=== PATIENT | male | born 1935 | race Caucasian/White ===

== ENCOUNTER → 2023-12-27 11:00 | Outpatient (REF) | payer MEDICARE, SELFPAY ==
[2023-12-27 12:05] LABS: % Eosinophils 6.1 % (0-6); % Immature Granulocytes 0.2 % (0-0.5); % Lymphocytes 28.3 % (20.5-51.1); % Neutrophils 56.4 % (42.2-75.2); Absolute Basophils 0.1 10^3/uL (0-0.2); Absolute Eosinophils 0.4 10^3/uL (0-0.7); Absolute Lymphocytes 1.8 10^3/uL (1.2-3.4); Absolute Monocytes 0.5 10^3/uL (0.1-0.6); Absolute Neutrophils 3.6 10^3/uL (1.4-6.5); Hematocrit 40.5 % (39.0-52.0); Hemoglobin 13.4 g/dL (13.0-18.0); Mean Corp Hgb Conc. 33.1 g/dL (33.0-37.0); Mean Corpuscular Hgb 29.1 pg (27.0-31.0); Mean Corpuscular Volume 87.9 fL (80.0-94.0); Mean Platelet Volume 11.3 fL (7.4-10.4); Nucleated Red Blood Cells % 0 % (-); Platelet Count 177 10^3/uL (130-400); Red Blood Cell Count 4.61 10^6/uL (4.70-6.10); Red Cell Dist. Width 13.7 % (11.5-14.5); White Blood Cell Count 6.3 10^3/uL (4.8-10.8)
[2023-12-27 12:17] LABS: Urine Albumin 1+ (Neg - Trace); Urine Bilirubin Negative (Negative); Urine Character Slightly Cloudy (Clear); Urine Color Brown; Urine Glucose Negative (Negative); Urine Ketone Trace (Negative); Urine Leukocyte Trace (Negative); Urine Nitrite Negative (Negative); Urine Occult Blood 4+ (Negative); Urine Specific Gravity 1.015 (<1.030); Urine Urobilinogen Negative (Neg - 1+)
[2023-12-27 12:25] LABS: Urine Amorphous Seen; Urine Bacteria Moderate (Negative); Urine Red Blood Cell >100 /HPF (0-2)
== END ==
LOC: OLABPATH 11:00
PROVIDERS: ATTENDING PHYSICIAN Internal Medicine
DX: R31.9 Hematuria, unspecified (principal)
CPT/HCPCS: 81003; 81015; 85025; 87077; 87086

== ENCOUNTER → 2024-01-16 12:00 | Outpatient (REF) | payer MEDICARE, SELFPAY ==
[2024-01-16 18:40] LABS: Urine Albumin Negative (Neg - Trace); Urine Bilirubin Negative (Negative); Urine Character Clear (Clear); Urine Color Yellow; Urine Glucose Negative (Negative); Urine Ketone Negative (Negative); Urine Leukocyte Negative (Negative); Urine Nitrite Negative (Negative); Urine Occult Blood Negative (Negative); Urine Specific Gravity 1.015 (<1.030); Urine Urobilinogen Negative (Neg - 1+)
== END ==
LOC: OLABPATH 12:00
PROVIDERS: ATTENDING PHYSICIAN Internal Medicine
DX: F03.90 Unspecified dementia, unspecified severity, without behavioral disturbance, psychotic disturbance, mood disturbance, and anxiety (principal); J93.9 Pneumothorax, unspecified
CPT/HCPCS: 81003; 87086

== ENCOUNTER → 2024-03-13 12:00 | Outpatient (REF) | payer MEDICARE, SELFPAY ==
[2024-03-16 17:58] LABS: Urine Albumin Trace (Neg - Trace); Urine Bilirubin Negative (Negative); Urine Character Very Cloudy (Clear); Urine Color Yellow; Urine Glucose Negative (Negative); Urine Ketone Negative (Negative); Urine Leukocyte Negative (Negative); Urine Nitrite Negative (Negative); Urine Occult Blood Trace (Negative); Urine Urobilinogen Negative (Neg - 1+)
[2024-03-16 18:13] LABS: Urine Bacteria Many (Negative); Urine White Cell 0-2 /HPF (0-5)
== END ==
LOC: CLAB 12:00
PROVIDERS: ATTENDING PHYSICIAN Internal Medicine
DX: F03.90 Unspecified dementia, unspecified severity, without behavioral disturbance, psychotic disturbance, mood disturbance, and anxiety (principal); Z87.81 Personal history of (healed) traumatic fracture; J93.9 Pneumothorax, unspecified
CPT/HCPCS: 36415; 81003; 81015; 87086

== ENCOUNTER → 2024-03-31 16:23 | Outpatient (REF) | payer MEDICARE, SELFPAY ==
[2024-03-31 17:00] LABS: Urine Albumin Negative (Neg - Trace); Urine Bilirubin Negative (Negative); Urine Character Clear (Clear); Urine Color Yellow; Urine Glucose Negative (Negative); Urine Ketone Negative (Negative); Urine Leukocyte Negative (Negative); Urine Nitrite Negative (Negative); Urine Occult Blood Negative (Negative); Urine Urobilinogen Negative (Neg - 1+)
== END ==
LOC: OLABPATH 16:23
PROVIDERS: ATTENDING PHYSICIAN Internal Medicine
DX: N39.0 Urinary tract infection, site not specified (principal)
CPT/HCPCS: 81003; 87086

== ENCOUNTER → 2024-05-05 11:25 | Outpatient (REF) | payer MEDICARE, SELFPAY ==
[2024-05-05 12:14] LABS: % Basophils 0.6 % (0-2); % Eosinophils 2.2 % (0-6); % Immature Granulocytes 1.1 % (0-0.5); % Monocytes 7.1 % (1.7-9.3); Absolute Basophils 0.1 10^3/uL (0-0.2); Absolute Eosinophils 0.2 10^3/uL (0-0.7); Absolute Immature Granulocytes 0.1 10^3/uL (0-0.05); Absolute Monocytes 0.7 10^3/uL (0.1-0.6); Absolute Neutrophils 7.9 10^3/uL (1.4-6.5); Hematocrit 43.1 % (39.0-52.0); Hemoglobin 13.7 g/dL (13.0-18.0); Mean Corp Hgb Conc. 31.8 g/dL (33.0-37.0); Mean Corpuscular Hgb 29.8 pg (27.0-31.0); Mean Corpuscular Volume 93.9 fL (80.0-94.0); Mean Platelet Volume 12.2 fL (7.4-10.4); Nucleated Red Blood Cells % 0 % (-); Platelet Count 214 10^3/uL (130-400); Red Blood Cell Count 4.59 10^6/uL (4.70-6.10); Red Cell Dist. Width 14.2 % (11.5-14.5)
[2024-05-05 12:35] LABS: ALT (SGPT) 29 U/L (0-50); AST (SGOT) 33 U/L (17-59); Albumin 3.2 g/dl (3.5-5.0); Alkaline Phosphatase 90 U/L (38-126); Blood Urea Nitrogen 38 mg/dl (9-20); Calcium 8.6 mg/dl (8.4-10.2); Carbon Dioxide 29 mmol/L (22-30); Chloride 117 mmol/L (98-107); Glucose 100 mg/dl (70-99); Potassium 3.9 mmol/L (3.5-5.1); Sodium 157 mmol/L (135-145); Total Bilirubin 1.4 mg/dl (0.2-1.3); Total Protein 6.2 g/dl (6.3-8.2); eGFR 58.89
== END ==
LOC: OLABPATH 11:25
PROVIDERS: ATTENDING PHYSICIAN Nurse Practitioner Family
DX: N40.0 Benign prostatic hyperplasia without lower urinary tract symptoms (principal); I48.20 Chronic atrial fibrillation, unspecified; J93.9 Pneumothorax, unspecified
CPT/HCPCS: 36415; 80053; 85025

== ENCOUNTER 2024-05-09 18:32 | Inpatient (IN) | payer MEDICARE, SELFPAY ==
[2024-05-09] VITALS (7 sets, daily range): BP systolic 112–149; BP diastolic 74–119; BMI 25.0; BMI 28.6
--- NOTE | 2024-05-09 15:51 | ED.GENMED ---
History of Present Illness
General
Chief Complaint: Urinary Symptoms
Source: patient and family (daughter)
Exam Limitations: dementia
Time Seen by Provider: 05/09/24 15:38
Nursing documentation reviewed up to this point in time: agreed with
History of Present Illness
History of Present Illness:
The patient is an 88-year-old man with a past medical history of dementia brought in by his daughter for hematuria. His daughter reports that he has had blood in his urine for about a week. Initially it seemed to become less abundant and darker,
however, daughter reports that today it appeared bright red and medina. Patient is on Xarelto for atrial fibrillation. Daughter reports that over a year ago, patient did have a Salas catheter and a traumatic injury due to pulling on the Salas
catheter. Since then, things have been stable. Daughter also reports that patient seems more sleepy than usual. Additionally, patient seems to be coughing and had a recent outpatient chest x-ray that the daughter was told appeared normal.
Patient does not provide a history. He does deny pain.
Past History
Past History
ED Past Medical History: CAD, COPD, HTN, Hypercholesterolemia, Other (Dementia, Parkinson's) and Other (Prostate hypertrophy)
ED Past Surgical History: Orthopedic (Bilateral knee replacements, right total hip, total L hip), Urological (Right nephrectomy) and Other (removal cystocele)
Social History
Tobacco: Former smoker
Alcohol: None
Drug: None
Personal:
Living: alone
Employment: Retired
Family History
Family History: Other
Review of Systems
Review of Systems
Allergies reviewed?: Yes
Unable to obtain full review of systems at this time due to: dementia
Other source history: family
All Other Systems: Not applicable
Constitutional: Reports fatigue
Respiratory: Reports cough
: Reports bleeding
Phy Exam
Physical Exam
Physical Exam:
Physical Exam
General: no apparent distress, sleepy but is arousable
Neck: supple.
Heart: s1/s2 regular rate and rhythm,
Lungs: Occasional wheeze, decreased breath sounds bilaterally
Abdomen: normal bowel sounds. not tender. no CVAT
Neuro: alert, nonfocal
Skin: no rash
Psychiatric: well kept. interactive and cooperative
Extremities: no edema.
Course
Orders/Labs/Results
Orders:
Orders
05/09/24 16:00
Urinalysis Reflex To Culture Urgent
Date Specimen was Collected: 05/09/24
Time Specimen was Collected: 15:57
Urine Microscopic Reflex Cult Urgent
Urine Culture Urgent
GENESIS Source: U
Specimen Description:
Date Specimen was Collected: 05/09/24
Time Specimen was Collected: 15:57
05/09/24 16:33
CT Abd/pel Without Iv Or Oral Urgent
Comment:
Reason For Exam: hematuria, UTI
05/09/24 17:18
Complete Blood Count/With Diff Urgent
Comprehensive Metabolic Panel Urgent
Abnormal Lab Results
05/09/24
16:00
Ur Occult Blood Reflex 4+ A
(Negative)
Leukocyte Esterase Rfl 2+ A
(Negative)
Urine RBC >100 A /HPF
(0-2)
Urine WBC (Reflex) >100 A /HPF
(0-5)
Urine Bacteria (Reflex) Moderate A
(Negative)
Urine Albumin (Reflex) 3+ A
(Neg - Trace)
Vital Signs
Initial and Last Documented VS:
Initial Vital Signs
Resp
28
05/09/24 15:38
Last Documented Vital Signs
Temp Pulse Resp BP Pulse Ox
98.6 F 94 18 133/99 96
05/09/24 15:53 05/09/24 15:53 05/09/24 15:53 05/09/24 15:53 05/09/24 15:53
MDM/Problems Addressed
Differential Diagnosis Includes:
Acute cystitis, pyelonephritis, kidney stones
MDM/Problems Addressed:
Patient here for acute hematuria
Chronic conditions affecting care:
Given patient has A-fib and is on Xarelto he is at increased risk of spontaneous bleeding
Acute Exacerbation and/or Progression of Chronic Illness: Arrhythmia
*Pulse Oximetry
Patient hypoxic: no
*EKG
Interpreted by ED Provider?: NA
*Drop Worker Interpretation
Rate: normal
Interpretation: normal
Rhythm: sinus
*Critical Care Note
Total Time (30-74mins, 75-104mins- exclusive of procedures): Not Applicable
Data Reviewed
Review of Other/Old Records Reveals: Discharge Summary (Discharge summary reviewed from 2021 when patient was admitted for orthostatic syncope and blood loss from traumatic Salas pull)
Source: patient and family
Patient Management
Discussion with other providers: Hospitalist
ED Attending Note
-
Portions of this chart may have been created with voice recognition software.� Occasional wrong word or��sound alike� substitutions may have occurred due to the inherent limitations of voice recognition software.
Discharge Plan
Departure
Prescriptions:
No Action
tamsulosin 0.4 MG capsule
0.4 mg PO DAILY
memantine 10 MG tablet
10 mg PO BID
donepezil 23 MG tablet
23 mg PO QPM
multivitamin with folic acid [Tab-A-Kyra] 1 TABLET tablet
1 tab PO DAILY
acetaminophen 325 MG tablet
650 mg PO Q6HPRN PRN (Reason: mild pain/ fever>100.5F) 0RF
magnesium hydroxide [Milk of Magnesia] 400 mg/5 mL Suspension
2,400 mg PO DAILYPRN PRN (Reason: constipation)
nystatin 100,000 unit/gram Powder
1 applic TOPICAL BID
loratadine 10 mg Tablet
10 mg PO DAILY
midodrine 5 MG tablet
10 mg PO TID@0800,1300,1800
Xarelto 20 MG tablet
20 mg PO QPM
Rx Instructions:
Resume on 12 AM
Referrals:
UNKNOWN - PT DOES,NOT KNOW [Family Provider] -
Interventions
Interventions:
*Risk Screen - Suicide Last Done: 05/09/24 17:15
*General Assessment Last Done: 05/09/24 17:15
*Neglect/Abuse Screening Last Done: 05/09/24 17:15
*ED COVID-19 Vaccine History Last Done: 05/09/24 17:15
Discharge Date and Time
Print Language: TELUGU
[2024-05-09 16:10] LABS: Urine Albumin 3+ (Neg - Trace); Urine Bilirubin Negative (Negative); Urine Character Bloody (Clear); Urine Color Brown; Urine Glucose Negative (Negative); Urine Ketone Negative (Negative); Urine Leukocyte 2+ (Negative); Urine Nitrite Negative (Negative); Urine Occult Blood 4+ (Negative); Urine Urobilinogen Negative (Neg - 1+); Urine pH 6.5 (5.0-9.0)
[2024-05-09 16:25] LABS: Urine Bacteria Moderate (Negative); Urine Red Blood Cell >100 /HPF (0-2); Urine White Cell >100 /HPF (0-5)
[2024-05-09 16:26] LABS: Urine Triple Phosphate Crystal Present
[2024-05-09 17:30] LABS: % Basophils 0.4 % (0-2); % Eosinophils 1.2 % (0-6); % Immature Granulocytes 0.7 % (0-0.5); % Lymphocytes 8.5 % (20.5-51.1); % Neutrophils 83.2 % (42.2-75.2); Absolute Basophils 0.1 10^3/uL (0-0.2); Absolute Eosinophils 0.2 10^3/uL (0-0.7); Absolute Immature Granulocytes 0.1 10^3/uL (0-0.05); Absolute Lymphocytes 1.1 10^3/uL (1.2-3.4); Absolute Monocytes 0.8 10^3/uL (0.1-0.6); Absolute Neutrophils 10.8 10^3/uL (1.4-6.5); Hematocrit 46.7 % (39.0-52.0); Hemoglobin 14.4 g/dL (13.0-18.0); Mean Corp Hgb Conc. 30.8 g/dL (33.0-37.0); Mean Corpuscular Hgb 28.8 pg (27.0-31.0); Mean Corpuscular Volume 93.4 fL (80.0-94.0); Mean Platelet Volume 11.3 fL (7.4-10.4); Nucleated Red Blood Cells % 0 % (-); Platelet Count 238 10^3/uL (130-400); Red Cell Dist. Width 14.3 % (11.5-14.5)
[2024-05-09 17:39] LABS: ALT (SGPT) 45 U/L (0-50); AST (SGOT) 42 U/L (17-59); Albumin 3.6 g/dl (3.5-5.0); Alkaline Phosphatase 105 U/L (38-126); Blood Urea Nitrogen 35 mg/dl (9-20); Carbon Dioxide 33 mmol/L (22-30); Chloride 114 mmol/L (98-107); Glucose 105 mg/dl (70-99); Potassium 4.3 mmol/L (3.5-5.1); Sodium 152 mmol/L (135-145); Total Bilirubin 0.9 mg/dl (0.2-1.3); Total Protein 6.7 g/dl (6.3-8.2); eGFR 48.95
--- NOTE | 2024-05-09 17:41 | HPS.HSE ---
Family Physician
-
Family Physician: NOT KNOW UNKNOWN - PT DOES
Chief Complaint
-
blood in the urine
History of Present Illness
88-year-old pleasantly confused male who is coming from longterm with confusion and hematuria. Patient is poor historian due to dementia and history was obtained with discussion from ER staff and patient daughter. Per patient daughter nursing
home noticed hematuria a few days ago and they inform patient daughter. Patient hematuria mildly improved. However patient redeveloped medina bright red blood in the urine. Daughter also noticed patient is more confused compared to his baseline.
Patient was more lethargic at the longterm. Daughter states patient does require assistance with feeding and was evaluated by speech therapy over the weekend who recommended nectar thick liquids. Per daughter patient has history of right
nephrectomy due to history of cancer. Had traumatic Simpson removal in the past. no recent hematuria was noticed. Patient is maintained on Xarelto for atrial fibrillation.'
ER Course- CT abd/pelvis pending. CXR pending.
Medical History
Past Medical History
Past Medical History: Reports Other
Additional Past Medical History:
CAD
COPD
Primary hypertension
Hyperlipidemia
Parkinson disease
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
Nonessential tremors
BPH
Gilbert disease
Past Surgical History: Reports Other
Additional Past Surgical History:
Bilateral knee replacement
Right nephrectomy
Right hip arthroplasty
Social History
Tobacco: Former Smoker
Living: Skilled Nursing
Family History
Family History: Not pertinent
Allergies / Home Medications
Allergies reflects when Allergies were last updated in [facility].
Home Medications with original date entered in [facility]
Allergy/Medication List:
Allergies
Allergy/AdvReac Type Severity Reaction Status Date / Time
NKA - No Known Allergies Allergy Unknown Unknown Uncoded 05/09/24 15:52
Home Medications
tamsulosin 0.4 mg capsule 0.4 mg PO DAILY Urinary issue 06/21/19
donepezil 23 mg tablet 23 mg PO QPM Neurological Condition 05/25/21
memantine 10 mg tablet 10 mg PO BID Neurological Condition 05/25/21
multivitamin with folic acid 400 mcg tablet (Tab-A-Kyra) 1 tab PO DAILY Supplement 05/25/21
loratadine 10 mg tablet 10 mg PO DAILY 11/20/22
midodrine 5 mg tablet 10 mg PO TID 11/20/22
rivaroxaban 20 mg tablet (Xarelto) 20 mg PO QPM Blood clot prevention/tx 11/20/22
acetaminophen 325 mg tablet (Tylenol) 650 mg PO Q4HPRN PRN MILD PAIN 05/09/24
amiodarone 200 mg tablet 200 mg PO BID 05/09/24
benzonatate 100 mg capsule 100 mg PO TIDPRN PRN COUGH 05/09/24
dextromethorphan-guaifenesin 30 mg-600 mg tablet extended [id number] hr (Mucinex DM) 1 tab PO [id number] PRN COUGH 05/09/24
guaifenesin 100 mg/5 mL oral liquid 200 mg PO Q6HPRN PRN COUGH 05/09/24
magnesium hydroxide 400 mg/5 mL oral suspension (Milk of Magnesia) 2,400 mg PO DAILYPRN PRN CONSTIPATION 05/09/24
nystatin 100,000 unit/gram topical powder (Nystop) 1 applic topical TIDPRN PRN SACRAL AREA 05/09/24
Review of Systems
-
Unable to obtain full review of systems at this time due to: Dementia
Physical Exam
Vital Signs
Vital Signs
Temp Pulse Resp BP Pulse Ox
98.6 F 94 18 133/99 96
05/09/24 15:53 05/09/24 15:53 05/09/24 15:53 05/09/24 15:53 05/09/24 15:53
Physical Exam
General: Well Developed, Well Nourished, No Apparent Distress and Appears Chronically Ill
HEENT: NormoCephalic, Moist mucous membranes, Atraumatic and Nose Appears Normal
Respiratory: Clear
Cardiac: S1/S2, Regular Rhythm and Murmur; No Rub
GI: Soft, Non Tender, Non Distended and Normal Bowel Sounds; No Organomegaly
Rectal: Deferred by Provider
Musculoskeletal: No Clubbing, No Cyanosis and No Edema
Skin: No Rash
Neuro: Awake and Nonfocal/grossly intact
Psych: Confused and Apparent Dementia
Laboratory Results
-
05/09/24 17:18
05/09/24 17:18
Laboratory Results
Total Bilirubin 0.9 mg/dl (0.2-1.3) 05/09/24 17:18
AST 42 U/L (17-59) 05/09/24 17:18
ALT 45 U/L (0-50) 05/09/24 17:18
Alkaline Phosphatase 105 U/L (38-126) 05/09/24 17:18
Impression/Plan
-
#Hematuria likely exacerbated with Xarelto
#Hx of Renal cell carcinoma status post nephrectomy
# History of hematuria 2021 status post cystoscopy with clot evacuation partial TURP by Dr. Parsons
CT abdomen pelvis is pending
Holding Xarelto
Start patient IV fluids
Follow-up in the urine culture
Start patient on IV antibiotic
Urology will determine three-way simpson versus need for CBI?
Unclear if with any retention.
May require mitts or restraints if it Simpson catheter to avoid tugging onto the Simpson.
Urology consultation
#Toxic metabolic encephalopathy likely secondary to hyponatremia secondary to dehydration and suspected urinary tract infection versus worsening of dementia
Started on D5W
Trend BMP
Started patient IV antibiotics
If lethargic then check CT head
#Alzheimer dementia
#Mild dysphagia
Continue to reorient patient as necessary
Avoid benzos
Continue with memantine and donepezil
Continue with nectar thick liquid consistency
Speech evaluation
#Paroxysmal atrial fibrillation
Chronic coagulopathy with Xarelto
Continue with amiodarone
Holding Xarelto
Nonessential tremors
Needs assistance with feeding
Chronic HFpEF
Moderate mitral regurgitation
DVT prophylaxis SCDs in the setting of hematuria
CODE STATUS DNR/DNI per [facility] and confirmed with patient daughter Johnna (EP SPONGE PACKER at [employer]) who is POA.
Discussed with patient daughter over the phone in details.
Discussed with ER physician
Discussed with neurologist
I spent a total of 78 minutes with the patient or on the floor. More than 50% of this time involved counseling and coordination of care.
[2024-05-09] MEDS: VALIUM INJECTION 2.5 MG IV (19:01)
--- NOTE | 2024-05-09 19:16 | CON.MD ---
Consultation - Medical
-
see dictated note
pt first to attention of cbi may 2021- hx of nx at [facility]- was in retention with simpson on xarelto- fell with traumatic simpson pull- developed clot retention eventually requiring cysto/fulguration with partiall tur by dr donnelly
seen once in office on f/u- was voiding with some incontinence
pt in memory care unit but has continued xarelto
started with hematuria last week- xarelto was held- restarted yesterday/today with return of hematuria/clots- brought to ER
stable but confused
3 way cath placed- no retention- bloody malodorous urine- irrigated without sig clot- cbi started
ct performed- no obvious gu abnl- final read pending
plan
spoke with daughter and med team
continue cbi
ucx
antibx
simpson and cbi
close observation
[2024-05-09] MEDS: NAMENDA 10 MG PO (22:48)
[2024-05-09] MEDS: ProAmatine PO (22:48)
[2024-05-09] MEDS: PACERONE 200 MG PO (22:48)
[2024-05-09] MEDS: ROCEPHIN 1000 MG IV (22:48)
[2024-05-09] MEDS: STERILE WATER FOR INJECTION 10 ML IV (22:49)
[2024-05-09] MEDS: D5/0.45%NACL 1000 IV (22:49)
[2024-05-10 03:30] VITALS: BP 133/93
[2024-05-10 06:00] VITALS: BMI 29.2
[2024-05-10 07:20] VITALS: BP 146/98
--- NOTE | 2024-05-10 07:27 | W.PN.URO.CBU ---
Today's Communication / Plan
-
continue cbi/antibx and hydration
Assessment / Plan
-
gross hematuria
? bph/UTI- tumor and stone less likely
in terms of bleeding- continue to hold xarelto and continue CBI- hopefully will clear with med management
stone debris is minimal and does not require intervention at this time- would continue aggresive hydration over the next 24-48hrs and this should pass/clear
will follow closely
Diagnosis
-
Date of Service: May 10, 2024
-
Patient Diagnosis:
gross hematuria
Subjective
-
pt remains confused
cbi running- slow rate- peach colored
cx's pending
ct reviewed- no gross mass- some nonobstructive stone debris in left ureter
Objective
-
Vital Signs
Temp Pulse Resp BP Pulse Ox
98.0 F 97 16 133/93 93
05/10/24 03:30 05/10/24 03:30 05/10/24 03:30 05/10/24 03:30 05/10/24 03:30
Intake and Output
05/09/24 05/10/24 05/11/24
06:59 06:59 06:59
Intake Total 500 / 500
Output Total 550 / 550
Balance -50 / -50
Intake:
IV fluids (Total) 500 / 500
Output:
True Urine Output from CBI 550 / 550
Review of Systems
-
Unable to obtain full review of systems at this time due to: Dementia
Physical Exam
-
General - no acute distress
Abdomen - soft, non-tender
Genitalia - simpson in place
[2024-05-10 07:51] LABS: INR 1.34; PT 16.9 Sec (11.4-14.6)
[2024-05-10 08:07] LABS: Blood Urea Nitrogen 28 mg/dl (9-20); Calcium 8.9 mg/dl (8.4-10.2); Carbon Dioxide 31 mmol/L (22-30); Chloride 114 mmol/L (98-107); Estimated Creatinine Clearance 39 ml/min; Glucose 103 mg/dl (70-99); Potassium 4.5 mmol/L (3.5-5.1); Sodium 152 mmol/L (135-145)
[2024-05-10 08:09] LABS: % Basophils 0.4 % (0-2); % Eosinophils 1.1 % (0-6); % Immature Granulocytes 0.7 % (0-0.5); % Monocytes 6.5 % (1.7-9.3); % Neutrophils 81.3 % (42.2-75.2); Absolute Basophils 0.1 10^3/uL (0-0.2); Absolute Eosinophils 0.1 10^3/uL (0-0.7); Absolute Immature Granulocytes 0.1 10^3/uL (0-0.05); Absolute Lymphocytes 1.3 10^3/uL (1.2-3.4); Absolute Monocytes 0.9 10^3/uL (0.1-0.6); Absolute Neutrophils 10.7 10^3/uL (1.4-6.5); Hematocrit 45.9 % (39.0-52.0); Hemoglobin 14.3 g/dL (13.0-18.0); Mean Corp Hgb Conc. 31.2 g/dL (33.0-37.0); Mean Corpuscular Volume 93.1 fL (80.0-94.0); Mean Platelet Volume 11.4 fL (7.4-10.4); Nucleated Red Blood Cells % 0 % (-); Platelet Count 202 10^3/uL (130-400); Red Blood Cell Count 4.93 10^6/uL (4.70-6.10); Red Cell Dist. Width 14.1 % (11.5-14.5); White Blood Cell Count 13.2 10^3/uL (4.8-10.8)
[2024-05-10 08:10] LABS: APTT 39.4 Sec (23.4-35.0)
[2024-05-10] MEDS: CLARITIN 10 MG PO (08:30)
[2024-05-10] MEDS: NAMENDA 10 MG PO ×2 (08:30→20:27)
[2024-05-10] MEDS: THERAGRAN 1 TABLET PO (08:30)
[2024-05-10] MEDS: FLOMAX 0.4 MG PO (08:31)
[2024-05-10] MEDS: PACERONE 200 MG PO ×2 (08:31→20:27)
[2024-05-10] MEDS: ProAmatine PO ×3 (08:31→16:58)
[2024-05-10] MEDS: D5W 1000 IV ×2 (08:55→20:27)
--- NOTE | 2024-05-10 11:19 | W.PN.HOSP.TC ---
Today's Communication/Plan
-
Cont CBI
D5W rate increased
IV abx
trend cbc
Assessment / Plan
Assessment / Plan
General: Well Developed, Well Nourished, No Apparent Distress and Appears Chronically Ill
HEENT: NormoCephalic, Moist mucous membranes, Atraumatic and Nose Appears Normal
Respiratory: Clear
Cardiac: S1/S2, Regular Rhythm and Murmur; No Rub
GI: Soft, Non Tender, Non Distended and Normal Bowel Sounds; No Organomegaly
Rectal: Deferred by Provider
Musculoskeletal: No Clubbing, No Cyanosis and No Edema
Skin: No Rash
:CBI with mild pinkish color urine
Neuro: Awake and Nonfocal/grossly intact
Psych: Confused and Apparent Dementia
#Hematuria likely exacerbated with Xarelto
#Hx of Renal cell carcinoma status post nephrectomy
# History of hematuria 2021 status post cystoscopy with clot evacuation partial TURP by Dr. Parsons
CT abdomen pelvis with renal stones. Non obstructive
Holding Xarelto
Start patient IV fluids
Follow-up in the urine culture
Start patient on IV antibiotic Rocephin
Cont with CBI
May require mitts or restraints if it Salas catheter to avoid tugging onto the Salas.
Urology consulted
#Toxic metabolic encephalopathy likely secondary to hyponatremia secondary to dehydration and suspected urinary tract infection versus worsening of dementia
Started on D5W
Trend BMP
Started patient IV antibiotics
If lethargic then check CT head
#Alzheimer dementia
#Mild dysphagia
Continue to reorient patient as necessary
Avoid benzos
Continue with memantine and donepezil
Continue with nectar thick liquid consistency
Speech evaluation
#Paroxysmal atrial fibrillation
Chronic coagulopathy with Xarelto
Continue with amiodarone
Holding Xarelto
Nonessential tremors
Needs assistance with feeding
Chronic HFpEF
Moderate mitral regurgitation
Gallstones
LFTs wnl. No RUQ pain. Tolerating diet.
DVT prophylaxis SCDs in the setting of hematuria
CODE STATUS DNR/DNI per [facility] and confirmed with patient daughter Johnna (EP MACHINIST HELPER at [employer]) who is POA.
Discussed with patient daughter over the phone in details on admisison and 05/10/24.
Discussed with urologist
Anticipated Discharge: > 48 hours
Subjective/Interval History
-
Date of Service: May 10, 2024
Remains on CBI
urine starting to clear up
Objective Data
-
Labs:
Laboratory Results
05/10/24
07:03
WBC 13.2 H
Hgb 14.3
Hct 45.9
Plt Count 202
PT 16.9 H
INR 1.34
APTT 39.4 H
Sodium 152 H
Potassium 4.5
Chloride 114 H
Carbon Dioxide 31 H
BUN 28 H
Creatinine 1.3
Glucose 103 H
Calcium 8.9
Vital Signs:
Vital Signs
Temp Pulse Resp BP Pulse Ox
96.9 F L 97 18 146/98 94
05/10/24 07:20 05/10/24 07:20 05/10/24 07:20 05/10/24 08:31 05/10/24 08:00
I&O
05/09/24 05/10/24 05/11/24
06:59 06:59 06:59
Intake Total 500 / 500
Output Total 550 / 550
Balance -50 / -50
Data Reviewed
-
Total Time Spent with Patient (in minutes): 55
[2024-05-10 12:12] LABS: ALT (SGPT) 38 U/L (0-50); AST (SGOT) 34 U/L (17-59); Albumin 3.4 g/dl (3.5-5.0); Alkaline Phosphatase 101 U/L (38-126); Direct Bilirubin 0.5 mg/dl (0.0-0.4); Total Bilirubin 1.4 mg/dl (0.2-1.3); Total Protein 6.5 g/dl (6.3-8.2)
[2024-05-10 13:00] VITALS: BP 127/84
--- NOTE | 2024-05-10 16:03 | CM ---
Initial assessment completed with pts daughter at bedside.
Pt lives with [facility].
Pt is w/c bound and receives total care. Per daughter, his alzheimers is progressing and is needing more aide with feeding and use of adaptive equipment.
PLAN; Return to [facility] when medically stable. Will need transport
[2024-05-10 16:05] VITALS: BP 147/88
[2024-05-10 19:58] VITALS: BP 123/79
[2024-05-10] MEDS: STERILE WATER FOR INJECTION 10 ML IV (21:47)
[2024-05-10] MEDS: ROCEPHIN 1000 MG IV (21:48)
[2024-05-10 23:08] VITALS: BP 102/61
[2024-05-11] VITALS (8 sets, daily range): BP systolic 100–140; BP diastolic 63–92; BMI 29.0
--- NOTE | 2024-05-11 06:23 | W.PN.URO.CBU ---
Today's Communication / Plan
-
wean cbi
still waiting on ucx
hold xarelto
Assessment / Plan
-
gross hematuria
? bph/UTI- tumor and stone less likely
in terms of bleeding- continue to hold xarelto and continue CBI- hopefully will clear with med management
stone debris is minimal and does not require intervention at this time- would continue aggresive hydration over the next 24-48hrs and this should pass/clear
plan to stop cbi at midnight tonight- if urine clear in am- would then d/c simpson for TOV
if bleeding persists- consider OR cysto/fulguration after discussion with daughter- will update today
Diagnosis
-
Date of Service: May 11, 2024
-
Patient Diagnosis:
gross hematuria
Subjective
-
pt asleep
urine light peach color on minimal cbi
ucx pending
Objective
-
Vital Signs
Temp Pulse Resp BP Pulse Ox
97.0 F 96 16 105/66 95
05/11/24 03:20 05/11/24 03:20 05/11/24 03:20 05/11/24 03:20 05/11/24 03:20
Intake and Output
05/09/24 05/10/24 05/11/24
06:59 06:59 06:59
Intake Total 500 / 500
Output Total 550 / 550 1800 / 1800
Balance -50 / -50 -1800 / -1800
Intake:
IV fluids (Total) 500 / 500
Output:
True Urine Output from CBI 550 / 550 1800 / 1800
Physical Exam
-
General - no acute distress
Abdomen - soft, non-tender
Genitalia - [address]
[2024-05-11 07:23] LABS: % Basophils 0.2 % (0-2); % Eosinophils 1.1 % (0-6); % Immature Granulocytes 0.6 % (0-0.5); % Lymphocytes 10.1 % (20.5-51.1); % Monocytes 7.2 % (1.7-9.3); % Neutrophils 80.8 % (42.2-75.2); Absolute Eosinophils 0.1 10^3/uL (0-0.7); Absolute Immature Granulocytes 0.1 10^3/uL (0-0.05); Absolute Lymphocytes 1.3 10^3/uL (1.2-3.4); Absolute Monocytes 0.9 10^3/uL (0.1-0.6); Absolute Neutrophils 10.3 10^3/uL (1.4-6.5); Hematocrit 40.8 % (39.0-52.0); Hemoglobin 12.8 g/dL (13.0-18.0); Mean Corp Hgb Conc. 31.4 g/dL (33.0-37.0); Mean Corpuscular Volume 92.3 fL (80.0-94.0); Mean Platelet Volume 11.5 fL (7.4-10.4); Nucleated Red Blood Cells % 0 % (-); Platelet Count 193 10^3/uL (130-400); Red Blood Cell Count 4.42 10^6/uL (4.70-6.10); Red Cell Dist. Width 13.8 % (11.5-14.5); White Blood Cell Count 12.8 10^3/uL (4.8-10.8)
[2024-05-11 07:49] LABS: Blood Urea Nitrogen 23 mg/dl (9-20); Calcium 8.1 mg/dl (8.4-10.2); Carbon Dioxide 28 mmol/L (22-30); Chloride 109 mmol/L (98-107); Estimated Creatinine Clearance 47 ml/min; Glucose 105 mg/dl (70-99); Potassium 3.9 mmol/L (3.5-5.1); Sodium 142 mmol/L (135-145); eGFR > 60.00
[2024-05-11] MEDS: NAMENDA 10 MG PO ×2 (10:34→20:43)
[2024-05-11] MEDS: PACERONE 200 MG PO ×2 (10:34→20:33)
[2024-05-11] MEDS: ProAmatine 10 MG PO ×3 (10:34→18:01)
[2024-05-11] MEDS: CLARITIN 10 MG PO (10:34)
[2024-05-11] MEDS: THERAGRAN 1 TABLET PO (10:34)
[2024-05-11] MEDS: FLOMAX 0.4 MG PO (10:34)
[2024-05-11] MEDS: D5W 1000 IV (11:34)
--- NOTE | 2024-05-11 13:41 | CM ---
manager training reviewed patient's chart and spoke with patient's daughter and spoke with [employer] supervisor at [facility] in [place] and plan is for patient to return to [facility] when stable. manager training will fax clinical.
Plan; Patient to return to [facility] in [place] when stable.
[phone]
--- NOTE | 2024-05-11 15:04 | W.PN.HOSP.TC ---
Today's Communication/Plan
-
Escalate antibiotics to IV Zosyn
RUQ ultrasound, consider HIDA and surgical consult
Monitor mental status clinically
CBI wean per urology
Hold Xarelto
Assessment / Plan
Assessment / Plan
#Gross hematuria
#Chronic anticoagulation
#H/O renal cell carcinoma s/p nephrectomy
-CT A/P showed 3 left-sided ureteral calculi with mild distention of mid to distal ureter
-UA here with 4+ blood, 2+ leukocyte esterase, >100 WBC, moderate bacteria; urine culture positive for Proteus, sensitivities pending
-Was started on ceftriaxone empirically for coverage of underlying UTI
-Will escalate to IV Zosyn for coverage of likely cholecystitis
-Currently on CBI wean per urology, Xarelto remains held
-Continue IV Zosyn, follow urine culture sensitivities
-Trend CBC and temperature curve
#Cholecystitis
-CT A/P from 05/09 mentions signs of cholecystitis
-Patient has had persistent leukocytosis on Abx, right sided abdomen pain
-Escalated IV antibiotics to Zosyn for better anaerobic and bowel coverage
-Order RUQ US to assess gallbladder, consider HIDA scan
-Continue IV Zosyn, trend CBC and temperature curve
#Toxic metabolic encephalopathy
-Likely secondary to above issues, suspect predominantly related to cholecystitis
-Has not clinically improved much, remains AAOx1, leukocytosis persistent on
-Transitioning to more broad-spectrum antibiotics as above
-Continue to monitor mental status clinically
#Alzheimer dementia
#Mild chronic dysphagia
-Avoid benzodiazepines, continue with memantine at donepezil
-Continue with nectar thick liquid consistency
#Paroxysmal AF
-Nonvalvular; home medications include amiodarone and Xarelto
-No known history of electrophysiologic interventions
-Holding Xarelto due to gross hematuria as above
#Chronic HFpEF
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
-Not currently on GDMT or standing diuretic therapy
-Is chronically on midodrine 10 mg 3 times daily
-Appears euvolemic
#Nonessential tremors
-Unclear etiology, likely associated with Parkinson's history
DVT prophylaxis: SCDs
Diet: Cholesterol-lowering, honey thick liquids
CODE STATUS: DNR
Anticipated Discharge: > 48 hours
Subjective/Interval History
-
Date of Service: May 11, 2024
Seen and examined at the bedside. No acute events reported overnight. AFVSS this morning.
Remains significantly altered, AAO x 1. Persistent leukocytosis on labs despite ceftriaxone
Unable to obtain further history or ROS due to his mental status
Objective Data
-
Labs:
Laboratory Results
05/11/24
06:52
WBC 12.8 H
Hgb 12.8 L
Hct 40.8
Plt Count 193
Sodium 142 D
Potassium 3.9
Chloride 109 H
Carbon Dioxide 28
BUN 23 H
Creatinine 1.1
Glucose 105 H
Calcium 8.1 L
Vital Signs:
Vital Signs
Temp Pulse Resp BP Pulse Ox
98.2 F 94 18 111/67 94
05/11/24 07:43 05/11/24 13:46 05/11/24 07:43 05/11/24 13:48 05/11/24 07:43
I&O
05/10/24 05/11/24 05/12/24
06:59 06:59 06:59
Intake Total 500 / 500 240 / 240
Output Total 550 / 550 1800 / 1800
Balance -50 / -50 -1560 / -1560
Review of Systems
-
Unable to obtain full review of systems at this time due to: Dementia and Acuity
Physical Exam
-
General: Well Developed, Well Nourished, No Apparent Distress and Comfortable
HEENT: Normocephalic, Atraumatic, Moist Mucous Membranes and Anicteric
Respiratory: Clear to Auscultation and Non Labored Respirations; Negative Accessory Resp Muscle Use
Cardiac: Regular Rhythm and S1/S2; Negative Murmur, Rub or Gallop
GI: Soft, Nondistended, Normal Bowel Sounds and Tender (Right-sided, no peritoneal signs)
Musculoskeletal: No Clubbing, No Cyanosis and No Edema
Skin: Warm and Dry; Negative Rash
Neuro: Tremors and Other (AAO x 1, nonfocal, cranial nerves grossly intact)
Psych: Calm
Data Reviewed
-
Labs: Labs Reviewed by me, Discussed with Nurse and Discussed with Family
[2024-05-11] MEDS: ZOSYN 50 IV ×2 (18:01→21:35)
[2024-05-12 03:19] VITALS: BP 118/82
[2024-05-12 03:58] VITALS: BMI 29.2
[2024-05-12] MEDS: ZOSYN 50 IV ×4 (04:25→21:00)
--- NOTE | 2024-05-12 07:21 | W.PN.URO.CBU ---
Today's Communication / Plan
-
simpson out for TOV
Assessment / Plan
-
gross hematuria
appears to be secondary to blood thinners and proteus UTI
urine clear off CBI- remove simpson for TOV
continue antibx
cr has been normal and no flank pain- so i believe stone debris likley cleared
if pt able to urinate- would discharge when medically stable with additional 7-10 days of antibx and hold of blood thinners during this period- after that- restart would be based on family's goals of care
he would then schedule outpt office visit to discuss cysto and f/u of stones
Diagnosis
-
Date of Service: May 12, 2024
-
Patient Diagnosis:
gross hematuria
proteus UTI
Subjective
-
pt stable
urine clear off cbi
ucx + for proteus
Objective
-
Vital Signs
Temp Pulse Resp BP Pulse Ox
97.0 F 107 18 118/82 97
05/12/24 03:19 05/12/24 03:19 05/12/24 03:19 05/12/24 03:19 05/12/24 03:19
Intake and Output
05/11/24 05/12/24 05/13/24
06:59 06:59 06:59
Intake Total 240 / 240 1310 / 1310
Output Total 1800 / 1800 800 / 800
Balance -1560 / -1560 510 / 510
Intake:
Oral fluids 240 / 240 960 / 960
IV fluids (Total) 300 / 300
IV piggybacks 50 / 50
Output:
Urine, Simpson 800 / 800
True Urine Output from CBI 1800 / 1800
Laboratory Results
05/11/24 06:52
05/11/24 06:52
Review of Systems
-
Unable to obtain full review of systems at this time due to: Dementia
Physical Exam
-
General -no acute distress
[2024-05-12 07:28] VITALS: BP 107/75
[2024-05-12 08:30] LABS: % Basophils 0.4 % (0-2); % Eosinophils 1.7 % (0-6); % Immature Granulocytes 0.8 % (0-0.5); % Lymphocytes 10.7 % (20.5-51.1); % Monocytes 7.4 % (1.7-9.3); Absolute Basophils 0.1 10^3/uL (0-0.2); Absolute Eosinophils 0.2 10^3/uL (0-0.7); Absolute Immature Granulocytes 0.1 10^3/uL (0-0.05); Absolute Lymphocytes 1.2 10^3/uL (1.2-3.4); Absolute Monocytes 0.8 10^3/uL (0.1-0.6); Absolute Neutrophils 8.8 10^3/uL (1.4-6.5); Hematocrit 42.6 % (39.0-52.0); Hemoglobin 13.5 g/dL (13.0-18.0); Mean Corp Hgb Conc. 31.7 g/dL (33.0-37.0); Mean Corpuscular Volume 91.4 fL (80.0-94.0); Mean Platelet Volume 11.2 fL (7.4-10.4); Nucleated Red Blood Cells % 0 % (-); Platelet Count 208 10^3/uL (130-400); Red Blood Cell Count 4.66 10^6/uL (4.70-6.10); Red Cell Dist. Width 13.9 % (11.5-14.5); White Blood Cell Count 11.2 10^3/uL (4.8-10.8)
[2024-05-12] MEDS: ProAmatine 10 MG PO ×3 (09:07→16:28)
[2024-05-12] MEDS: CLARITIN 10 MG PO (09:07)
[2024-05-12] MEDS: PACERONE 200 MG PO ×2 (09:07→20:42)
[2024-05-12] MEDS: THERAGRAN 1 TABLET PO (09:07)
[2024-05-12] MEDS: FLOMAX 0.4 MG PO (09:07)
[2024-05-12] MEDS: NAMENDA 10 MG PO ×2 (09:08→20:38)
[2024-05-12 09:30] LABS: Blood Urea Nitrogen 24 mg/dl (9-20); Calcium 8.2 mg/dl (8.4-10.2); Carbon Dioxide 28 mmol/L (22-30); Chloride 108 mmol/L (98-107); Estimated Creatinine Clearance 37 ml/min; Glucose 89 mg/dl (70-99); Sodium 144 mmol/L (135-145); eGFR 48.95
[2024-05-12 09:40] LABS: COVID-19 Antigen Negative (Negative)
--- NOTE | 2024-05-12 10:29 | CM ---
Patient to return to [facility] in [place] when stable.
[facility]
[phone]
[2024-05-12 11:15] VITALS: BP 110/70
--- NOTE | 2024-05-12 12:22 | W.PN.HOSP.TC ---
Today's Communication/Plan
-
Continue IV Zosyn and follow sensitivity for Proteus
IV fluids and encourage p.o. intake
Trial of void
Assessment / Plan
Assessment / Plan
#Gross hematuria
#Chronic anticoagulation
#H/O renal cell carcinoma s/p nephrectomy
-CT A/P showed 3 left-sided ureteral calculi with mild distention of mid to distal ureter
-UA here with 4+ blood, 2+ leukocyte esterase, >100 WBC, moderate bacteria; urine culture positive for Proteus, sensitivities pending
-Was started on ceftriaxone empirically for coverage of underlying UTI; UCx growing Proteus, sensitivities pending
-Escalated antibiotics to IV Zosyn due to persistent leukocytosis
-S/p CBI, Xarelto remains held for now
Plan
-Continue with IV Zosyn and follow urine culture sensitivities
-Continue to trend temperature curve and CBC
-Hold Xarelto
-Trial of void today
#Toxic metabolic encephalopathy
-Likely secondary to above issues, suspect predominantly related to cholecystitis
-Has not clinically improved much, remains AAOx1, leukocytosis persistent on
-Transitioning to more broad-spectrum antibiotics as above
-Continue to monitor mental status clinically
#Alzheimer dementia
#Mild chronic dysphagia
-Avoid benzodiazepines, continue with memantine at donepezil
-Continue with nectar thick liquid consistency
#Paroxysmal AF
-Nonvalvular; home medications include amiodarone and Xarelto
-No known history of electrophysiologic interventions
-Holding Xarelto due to gross hematuria as above
#Chronic HFpEF
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
-Not currently on GDMT or standing diuretic therapy
-Is chronically on midodrine 10 mg 3 times daily
-Appears euvolemic
#Nonessential tremors
-Unclear etiology, likely associated with Parkinson's history
#CT read of cholecystitis and patient without gallbladder
-CT A/P from 05/09 mentions signs of cholecystitis, however patient does not have gallbladder
-Canceled RUQ US as previous study showed no gallbladder
DVT prophylaxis: SCDs
Diet: Cholesterol-lowering, honey thick liquids
CODE STATUS: DNR
Anticipated Discharge: 24 - 48 hours
Subjective/Interval History
-
Date of Service: May 12, 2024
Seen and examined at the bedside. No acute events reported overnight. AFVSS this morning
AAO x 1, spoke with his daughters yesterday he states that this is his baseline. Did raise concerns about possible URI symptoms recently and requested viral testing
No acute complaints today, ROS limited by his dementia
Objective Data
-
Labs:
Laboratory Results
05/12/24
08:13
WBC 11.2 H
Hgb 13.5
Hct 42.6
Plt Count 208
Sodium 144
Potassium 4.0
Chloride 108 H
Carbon Dioxide 28
BUN 24 H
Creatinine 1.4 H
Glucose 89
Calcium 8.2 L
Vital Signs:
Vital Signs
Temp Pulse Resp BP Pulse Ox
98.4 F 85 18 110/70 96
05/12/24 11:15 05/12/24 11:15 05/12/24 11:15 05/12/24 11:15 05/12/24 11:15
I&O
05/11/24 05/12/24 05/13/24
06:59 06:59 06:59
Intake Total 240 / 240 1310 / 1310
Output Total 1800 / 1800 800 / 800
Balance -1560 / -1560 510 / 510
Review of Systems
-
Unable to obtain full review of systems at this time due to: Dementia
Physical Exam
-
General: Well Developed, Well Nourished, No Apparent Distress and Comfortable
HEENT: Normocephalic, Atraumatic, Moist Mucous Membranes and Anicteric
Respiratory: Clear to Auscultation and Non Labored Respirations
Cardiac: Regular Rhythm and S1/S2; Negative Murmur, Rub or Gallop
GI: Soft, Nondistended, Normal Bowel Sounds and Tender (Suprapubic to lower abdomen, no peritoneal signs)
Musculoskeletal: No Clubbing, No Cyanosis and No Edema
Skin: Warm, Dry and Normal Turgor; Negative Rash
Neuro: Other (AAO x 1, no FND, cranial nerves grossly intact)
Psych: Calm
Data Reviewed
-
Labs: Labs Reviewed by me
[2024-05-12] MEDS: LR 1000 IV (13:29)
[2024-05-12 15:12] VITALS: BP 110/80
[2024-05-12 19:00] VITALS: BP 91/62
[2024-05-12 23:03] VITALS: BP 88/61
[2024-05-13] MEDS: LR 1000 IV ×3 (01:57→22:33)
[2024-05-13 03:00] VITALS: BP 85/51
[2024-05-13] MEDS: ZOSYN 50 IV ×2 (03:36→09:37)
[2024-05-13 06:00] VITALS: BMI 29.0
--- NOTE | 2024-05-13 07:19 | W.PN.URO.CBU ---
Today's Communication / Plan
-
continue antibx
await ucx
check pvr's
Assessment / Plan
-
gross hematuria
appears to be secondary to blood thinners and proteus UTI
BOSE OUT- no further hematuria noted
continue antibx
cr has been normal and no flank pain- so i believe stone debris likley cleared
check pvr's today
if emptying and stable- eventual plan would be for dicharge with oral course of atnibx for an additional 7 days and outpt f/u to discuss need for cysto
Diagnosis
-
Date of Service: May 13, 2024
-
Patient Diagnosis:
gross hematuria
proteus UTI
Subjective
-
no fevers
wbc declining
ucx final pending
NOT WELL DOCUMENTED- AT SOME POINT BOSE WAS REMOVED YESTERDAY- PT IS INCONT- BY NURSING REPORT A PVR WAS DONE AND WAS 'OK'
Objective
-
Vital Signs
Temp Pulse Resp BP Pulse Ox
98.1 F 80 16 85/51 95
05/13/24 03:00 05/13/24 03:00 05/13/24 03:00 05/13/24 03:00 05/13/24 03:00
Intake and Output
05/12/24 05/13/24 05/14/24
06:59 06:59 06:59
Intake Total 1310 / 1310 450 / 450
Output Total 800 / 800
Balance 510 / 510 450 / 450
Intake:
Oral fluids 960 / 960 450 / 450
IV fluids (Total) 300 / 300
IV piggybacks 50 / 50
Output:
Urine, Bose 800 / 800
Other:
Number of approximated MODERATE 1
amounts of urine
Number of approximated LARGE 1
amounts of urine
How many times incontinent 1
SATURATED amount urine
Laboratory Results
05/12/24 08:13
05/12/24 08:13
Review of Systems
-
Unable to obtain full review of systems at this time due to: Dementia
Physical Exam
-
General - no acute distress
Abdomen - soft, non-tender,
Genitalia - normal
[2024-05-13] MEDS: THERAGRAN 1 TABLET PO (08:45)
[2024-05-13] MEDS: CLARITIN 10 MG PO (08:45)
[2024-05-13] MEDS: ProAmatine 10 MG PO ×3 (08:45→16:59)
[2024-05-13] MEDS: FLOMAX 0.4 MG PO (08:45)
[2024-05-13] MEDS: PACERONE 200 MG PO ×2 (08:45→20:16)
[2024-05-13] MEDS: NAMENDA 10 MG PO ×2 (08:46→20:17)
[2024-05-13 09:45] LABS: % Basophils 0.5 % (0-2); % Immature Granulocytes 0.8 % (0-0.5); % Lymphocytes 17.6 % (20.5-51.1); % Monocytes 7.1 % (1.7-9.3); Absolute Eosinophils 0.3 10^3/uL (0-0.7); Absolute Immature Granulocytes 0.1 10^3/uL (0-0.05); Absolute Lymphocytes 1.5 10^3/uL (1.2-3.4); Absolute Monocytes 0.6 10^3/uL (0.1-0.6); Hematocrit 40.6 % (39.0-52.0); Hemoglobin 12.7 g/dL (13.0-18.0); Mean Corp Hgb Conc. 31.3 g/dL (33.0-37.0); Mean Corpuscular Hgb 28.8 pg (27.0-31.0); Mean Corpuscular Volume 92.1 fL (80.0-94.0); Mean Platelet Volume 11.6 fL (7.4-10.4); Nucleated Red Blood Cells % 0 % (-); Platelet Count 216 10^3/uL (130-400); Red Blood Cell Count 4.41 10^6/uL (4.70-6.10); White Blood Cell Count 8.4 10^3/uL (4.8-10.8)
[2024-05-13 09:53] LABS: Blood Urea Nitrogen 28 mg/dl (9-20); Calcium 8.2 mg/dl (8.4-10.2); Carbon Dioxide 26 mmol/L (22-30); Chloride 110 mmol/L (98-107); Estimated Creatinine Clearance 30 ml/min; Glucose 83 mg/dl (70-99); Potassium 3.9 mmol/L (3.5-5.1); Sodium 145 mmol/L (135-145); eGFR 38.78
--- NOTE | 2024-05-13 10:53 | PTOTSP ---
Reviewed chart and s/w dependency case manager. Apparently pt is wheelchair-bound and dependent for ADL's at baseline and will return to [facility] facility when medically stable. No rehab goals as pt is at baseline. Will sign off.
[2024-05-13 11:00] VITALS: BP 92/61
--- NOTE | 2024-05-13 11:03 | W.PN.HOSP.TC ---
Today's Communication/Plan
-
Transition to oral antibiotics
Hold Xarelto while on antibiotics
Discharge planning
Assessment / Plan
Assessment / Plan
#Gross hematuria
#Chronic anticoagulation
#H/O renal cell carcinoma s/p nephrectomy
#Urinary tract infection with Proteus mirabilis
-CT A/P showed 3 left-sided ureteral calculi with mild distention of mid to distal ureter
-UA here with 4+ blood, 2+ leukocyte esterase, >100 WBC, moderate bacteria; urine culture positive for Proteus, sensitivities pending
-Was started on ceftriaxone empirically for coverage of underlying UTI; UCx growing Proteus sensitive to third-generation cephalosporin
-Escalated antibiotics to IV Zosyn due to persistent leukocytosis which is now resolved
-S/p CBI, Xarelto remains held for now
Plan
-Transition to p.o. cefdinir today, plan for 14 days in total
-Continue to trend temperature curve and CBC
-Hold Xarelto until antibiotic course complete per urologist
-Monitor for urinary retention, recurrence of bleeding
#Toxic metabolic encephalopathy
-Likely secondary to above issues
-Resolved, AAO x 1 at baseline
#Alzheimer dementia
#Mild chronic dysphagia
-Avoid benzodiazepines, continue with memantine at donepezil
-Continue with nectar thick liquid consistency
#Paroxysmal AF
-Nonvalvular; home medications include amiodarone and Xarelto
-No known history of electrophysiologic interventions
-Holding Xarelto due to gross hematuria as above
#Chronic HFpEF
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
-Not currently on GDMT or standing diuretic therapy
-Is chronically on midodrine 10 mg 3 times daily
-Appears euvolemic
#Nonessential tremors
-Unclear etiology, likely associated with Parkinson's history
#CT read of cholecystitis and patient without gallbladder
-CT A/P from 05/09 mentions signs of cholecystitis, however patient does not have gallbladder
-Canceled RUQ US as previous study showed no gallbladder
DVT prophylaxis: SCDs
Diet: Cholesterol-lowering, honey thick liquids
CODE STATUS: DNR
Anticipated Discharge: Within 24 hours
Subjective/Interval History
-
Date of Service: May 13, 2024
Seen and examined at the bedside. No acute vents reported overnight. AFVSS this morning
Urine culture returned positive for Proteus, sensitive to third-generation cephalosporins. Much less abdomen tenderness to palpation, barely any discomfort today
He denies any acute complaints and states he feels well. ROS/history limited from baseline dementia, AAO x 1
Objective Data
-
Labs:
Laboratory Results
05/13/24
08:43
WBC 8.4
Hgb 12.7 L
Hct 40.6
Plt Count 216
Sodium 145
Potassium 3.9
Chloride 110 H
Carbon Dioxide 26
BUN 28 H
Creatinine 1.7 H
Glucose 83
Calcium 8.2 L
Vital Signs:
Vital Signs
Temp Pulse Resp BP Pulse Ox
98.1 F 80 16 85/51 95
05/13/24 03:00 05/13/24 03:00 05/13/24 03:00 05/13/24 03:00 05/13/24 03:00
I&O
05/12/24 05/13/24 05/14/24
06:59 06:59 06:59
Intake Total 1310 / 1310 450 / 450
Output Total 800 / 800
Balance 510 / 510 450 / 450
Review of Systems
-
Unable to obtain full review of systems at this time due to: Dementia
Physical Exam
-
General: Well Developed, Well Nourished, No Apparent Distress and Comfortable
HEENT: Normocephalic, Atraumatic, Moist Mucous Membranes, Anicteric and PERRLA
Respiratory: Clear to Auscultation and Non Labored Respirations
Cardiac: Regular Rhythm and S1/S2; Negative Murmur, Rub or Gallop
GI: Soft, Nondistended, Normal Bowel Sounds and Tender (Mild, suprapubic, improving. No peritoneal sign)
Musculoskeletal: No Clubbing, No Cyanosis and No Edema
Skin: Warm, Dry and Normal Turgor; Negative Rash
Neuro: Nonfocal/Grossly Intact and Other (AAO x 1)
Psych: Calm
Data Reviewed
-
Labs: Labs Reviewed by me, Discussed with Physician (Urology) and Discussed with Family
[2024-05-13 15:30] VITALS: BP 126/80
[2024-05-13 19:00] VITALS: BP 134/92
[2024-05-13] MEDS: OMNICEF 300 MG PO (20:16)
[2024-05-13 23:03] VITALS: BP 121/82
[2024-05-14 03:40] VITALS: BP 113/73
[2024-05-14 06:00] VITALS: BMI 29.0
[2024-05-14] MEDS: LR 1000 IV (06:28)
[2024-05-14 07:00] VITALS: BP 141/84
--- NOTE | 2024-05-14 07:44 | W.PN.URO.CBU ---
Today's Communication / Plan
-
cleared urologically for discharge
Assessment / Plan
-
gross hematuria
appears to be secondary to blood thinners and proteus UTI
BOSE OUT- no further hematuria noted
continue antibx
cr has been normal and no flank pain- so i believe stone debris likley cleared
pvr's minimal
plan would be for discharge with oral course of antibx for an additional 7 days and outpt f/u to discuss need for cysto
discussed with med tram
call with any further questions
Diagnosis
-
Date of Service: May 14, 2024
-
Patient Diagnosis:
gross hematuria
proteus UTI
Subjective
-
pt more awake and alert today
no complaints
urine clear by report
pvr's minimal
Objective
-
Vital Signs
Temp Pulse Resp BP Pulse Ox
97.8 F 86 18 113/73 94
05/14/24 03:40 05/14/24 03:40 05/14/24 03:40 05/14/24 03:40 05/14/24 03:40
Intake and Output
05/13/24 05/14/24 05/15/24
06:59 06:59 06:59
Intake Total 450 / 450 1200 / 1200
Balance 450 / 450 1200 / 1200
Intake:
Oral fluids 450 / 450
IV fluids (Total) 1200 / 1200
Other:
Number of approximated MODERATE 1
amounts of urine
Number of approximated LARGE 1
amounts of urine
How many times incontinent 1 1
SATURATED amount urine
Physical Exam
-
General - no acute distress
[2024-05-14 08:12] LABS: % Basophils 0.5 % (0-2); % Eosinophils 3.4 % (0-6); % Immature Granulocytes 0.5 % (0-0.5); % Lymphocytes 20.4 % (20.5-51.1); % Monocytes 7.1 % (1.7-9.3); % Neutrophils 68.1 % (42.2-75.2); Absolute Eosinophils 0.3 10^3/uL (0-0.7); Absolute Lymphocytes 1.5 10^3/uL (1.2-3.4); Absolute Monocytes 0.5 10^3/uL (0.1-0.6); Absolute Neutrophils 5.1 10^3/uL (1.4-6.5); Hematocrit 43.2 % (39.0-52.0); Hemoglobin 13.6 g/dL (13.0-18.0); Mean Corp Hgb Conc. 31.5 g/dL (33.0-37.0); Mean Corpuscular Hgb 28.9 pg (27.0-31.0); Mean Corpuscular Volume 91.9 fL (80.0-94.0); Mean Platelet Volume 11.3 fL (7.4-10.4); Nucleated Red Blood Cells % 0 % (-); Platelet Count 212 10^3/uL (130-400); Red Cell Dist. Width 13.7 % (11.5-14.5); White Blood Cell Count 7.4 10^3/uL (4.8-10.8)
[2024-05-14] MEDS: CLARITIN 10 MG PO (08:16)
[2024-05-14] MEDS: THERAGRAN 1 TABLET PO (08:16)
[2024-05-14] MEDS: NAMENDA 10 MG PO (08:16)
[2024-05-14] MEDS: ProAmatine 10 MG PO (08:16)
[2024-05-14] MEDS: PACERONE 200 MG PO (08:16)
[2024-05-14] MEDS: FLOMAX 0.4 MG PO (08:16)
[2024-05-14] MEDS: OMNICEF 300 MG PO (08:16)
[2024-05-14 08:50] LABS: Blood Urea Nitrogen 28 mg/dl (9-20); Calcium 8.3 mg/dl (8.4-10.2); Carbon Dioxide 27 mmol/L (22-30); Chloride 111 mmol/L (98-107); Estimated Creatinine Clearance 34 ml/min; Glucose 82 mg/dl (70-99); Potassium 4.4 mmol/L (3.5-5.1); Sodium 145 mmol/L (135-145); eGFR 45.06
--- NOTE | 2024-05-14 10:31 | CM ---
Addendum entered by Deepika Ortiz 05/14/24 11:44:
Patient scheduled for 4:30 ambulance transport. Daughter Johnna updated with transport time. CM reviewed IMM with daughter, agreeable to discharge. Update to [facility] with time of transport.
Original Note:
CM reviewed chart, reviewed with Hospitalist, patient clear for discharge. CM placed call to [facility] at [place], spoke with Sharon, provided update that patient will return today. Sharon requested updated clinicals- faxed to [phone]. Patient
will require ambulance transport. Call to daughter/primary contact, Tamar, to provide update. Tamar reports her sister, Johnna, may have further questions, CM will call Johnna once transport time is received. CM will continue to follow for all
discharge planning needs.
Plan; return to [facility] [place], ambulance transport.
[facility] [phone]
--- NOTE | 2024-05-14 10:43 | W.PN.HOSP.TC ---
Today's Communication/Plan
-
Discharge to SNF
Continue cefdinir to complete 14 days
Hold Xarelto until after antibiotics
Assessment / Plan
Assessment / Plan
#Gross hematuria
#Chronic anticoagulation
#H/O renal cell carcinoma s/p nephrectomy
#Urinary tract infection with Proteus mirabilis
-CT A/P showed 3 left-sided ureteral calculi with mild distention of mid to distal ureter
-UA here with 4+ blood, 2+ leukocyte esterase, >100 WBC, moderate bacteria; urine culture positive for Proteus, sensitivities pending
-Was started on ceftriaxone empirically for coverage of underlying UTI; UCx growing Proteus sensitive to third-generation cephalosporin
-Escalated antibiotics to IV Zosyn due to persistent leukocytosis which is now resolved
-S/p CBI, Xarelto remains held for now, plan to resume when antibiotic course complete
-Continue cefdinir 300 mg every 12 hours to complete 14 days of antibiotic
#Toxic metabolic encephalopathy
-Likely secondary to above issues
-Resolved, AAO x 1 at baseline
#Alzheimer dementia
#Mild chronic dysphagia
-Avoid benzodiazepines, continue with memantine at donepezil
-Continue with nectar thick liquid consistency
#Paroxysmal AF
-Nonvalvular; home medications include amiodarone and Xarelto
-No known history of electrophysiologic interventions
-Holding Xarelto due to gross hematuria as above
-Should have risk/benefits discussion with PCP about long-term AC
#Chronic HFpEF
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
-Not currently on GDMT or standing diuretic therapy
-Is chronically on midodrine 10 mg 3 times daily
-Appears euvolemic
#Nonessential tremors
-Unclear etiology, likely associated with Parkinson's history
#CT read of cholecystitis and patient without gallbladder
-CT A/P from 05/09 mentions signs of cholecystitis, however patient does not have gallbladder
-Canceled RUQ US as previous study showed no gallbladder
DVT prophylaxis: SCDs
Diet: Cholesterol-lowering, honey thick liquids
CODE STATUS: DNR
Anticipated Discharge: Today
Subjective/Interval History
-
Date of Service: May 14, 2024
Seen and examined at the bedside. No acute events reported overnight. AFVSS this morning
Patient looks and states he feels well.
Denies any acute complaints. History limited by AO x 1 baseline
Objective Data
-
Labs:
Laboratory Results
05/14/24
07:53
WBC 7.4
Hgb 13.6
Hct 43.2
Plt Count 212
Sodium 145
Potassium 4.4
Chloride 111 H
Carbon Dioxide 27
BUN 28 H
Creatinine 1.5 H
Glucose 82
Calcium 8.3 L
Vital Signs:
Vital Signs
Temp Pulse Resp BP Pulse Ox
97.4 F 92 22 141/84 99
05/14/24 07:00 05/14/24 07:00 05/14/24 07:00 05/14/24 07:00 05/14/24 07:00
I&O
05/13/24 05/14/24 05/15/24
06:59 06:59 06:59
Intake Total 450 / 450 1200 / 1200 420 / 420
Balance 450 / 450 1200 / 1200 420 / 420
Review of Systems
-
Unable to obtain full review of systems at this time due to: Dementia
Physical Exam
-
General: Well Developed, Well Nourished, No Apparent Distress and Comfortable
HEENT: Normocephalic, Atraumatic, Moist Mucous Membranes and Anicteric
Respiratory: Clear to Auscultation and Non Labored Respirations
Cardiac: Regular Rhythm and S1/S2; Negative Murmur, Rub or Gallop
GI: Soft, Nontender, Nondistended and Normal Bowel Sounds
Musculoskeletal: No Clubbing, No Cyanosis and No Edema
Skin: Warm, Dry and Normal Turgor; Negative Rash
Neuro: Awake, Alert, Oriented, Nonfocal/Grossly Intact and Central Nerve's Intact
Psych: Calm
Data Reviewed
-
Labs: Labs Reviewed by me and Discussed with Patient
[2024-05-14 11:00] VITALS: BP 131/91
[2024-05-14] MEDS: ProAmatine PO ×2 (12:26→16:31)
[2024-05-14] MEDS: LR IV (13:53)
--- NOTE | 2024-05-14 14:24 | W.DCSUMMARY ---
Discharge Summary
Discharge Data
Date of Admission: 05/09/24
Date of Discharge: 05/14/24
-
Pending Results: No
Hospital Course
87-year-old male with advanced dementia, Parkinson's disease, paroxysmal AF on Xarelto, HFpEF, orthostasis that presented to the hospital with toxic metabolic encephalopathy in the context of urinary tract infection and gross hematuria. Initial CT
A/P showed left-sided ureteral calculi with mild ureteral distention.
Urology evaluated and started CBI, Xarelto was held. Was started on broad-spectrum antibiotics, urinalysis consistent with infection of urine. Culture returned positive for Proteus with sensitivity to third-generation cephalosporins. Ultimately
was transition to cefdinir with plan to complete 14-day course of antibiotics. Trial of void was successful in the hospital. Plan to hold Xarelto until course of antibiotics is complete (can resume Xarelto morning after 14th day of antibiotics).
Should have risk/benefits discussion with PCP on long-term benefits of anticoagulation with his present comorbidities
Discharge Plan
-
Patient Disposition: Long-Term/SNF
Discharge Diagnosis/Procedures: Gross hematuria
UTI with Proteus mirabilis
Condition: Fair
Diet: No restrictions and Low Sodium
Activity: As tolerated
Driving Restrictions: No driving
Bathing Restrictions: None
Other Services: PT and OT
Specialty Instructions: Weigh Daily- Call MD for wt gain/loss 3 lbs overnight/5 lbs in 1 week
Activity Restrictions/Additional Instructions:
After discharge should have follow-up with family doctor, should be seen in office within 1 to 2 weeks of discharge
Should have follow-up with urologist in office
Referrals:
Emery Arshad MD, Resident [Family Practice Resident Year2] - (PCP office if needed)
Osvaldo Bernstein Jr., MD [Active] - in two to three weeks
UNKNOWN - PT DOES,NOT KNOW [Family Provider] -
Additional Discharge Medication Instructions: Hold Xarelto until cefdinir course completed. Should have risk/benefit discussion with PCP about long-term anticoagulant
Continue cefdinir 300 mg every 12 hours for 9 more days after discharge
Prescriptions:
New
cefdinir 300 mg Capsule
300 mg PO Q12 9 Days Qty: 18 0RF
Continued
tamsulosin 0.4 MG capsule
0.4 mg PO DAILY
memantine 10 MG tablet
10 mg PO BID
donepezil 23 MG tablet
23 mg PO QPM
multivitamin with folic acid [Tab-A-Kyra] 1 TABLET tablet
1 tab PO DAILY
loratadine 10 mg Tablet
10 mg PO DAILY
midodrine 5 MG tablet
10 mg PO TID
acetaminophen [Tylenol] 325 mg Tablet
650 mg PO Q4HPRN PRN (Reason: MILD PAIN)
amiodarone 200 mg Tablet
200 mg PO BID
guaifenesin 100 mg/5 mL Liquid
200 mg PO Q6HPRN PRN (Reason: COUGH)
magnesium hydroxide [Milk of Magnesia] 400 mg/5 mL Suspension
2,400 mg PO DAILYPRN PRN (Reason: CONSTIPATION)
benzonatate 100 mg Capsule
100 mg PO TIDPRN PRN (Reason: COUGH)
nystatin [Nystop] 100,000 unit/gram Powder
1 applic TOPICAL TIDPRN PRN (Reason: SACRAL AREA)
Mucinex DM 30-600 mg Tablet Extended Release 12 Hr
1 tab PO [id number] PRN (Reason: COUGH)
Held
Xarelto 20 MG tablet
20 mg PO QPM
Hold Instructions: Resume on 05/24/24. Should have discussion with family doctor regarding risks/benefits of long-term anticoagulation
Rx Instructions:
Resume on 12/30 AM
Discharge Orders:
Discharge Patient (As Directed); Ordered 05/14/24
Ordered By: Pedro Daley
Discharge Date and Time
Print Language: CENTRAL AFRICAN
[2024-05-14 15:00] VITALS: BP 139/89
== END 2024-05-14 17:30 | DRG 689 ==
LOC: 4 WEST ACU 18:32
PROVIDERS: ADMITTING PHYSICIAN Hospitalist; ATTENDING PHYSICIAN Internal Medicine; CONSULT PHYSICIAN Specialist; EMERGENCY PHYSICIAN Emergency Medicine
DX: N39.0 Urinary tract infection, site not specified (principal); G92.8 Other toxic encephalopathy; E87.1 Hypo-osmolality and hyponatremia; I50.32 Chronic diastolic (congestive) heart failure; D68.32 Hemorrhagic disorder due to extrinsic circulating anticoagulants; I48.0 Paroxysmal atrial fibrillation; Z79.01 Long term (current) use of anticoagulants; Z87.891 Personal history of nicotine dependence; G30.9 Alzheimer's disease, unspecified; F02.80 Dementia in other diseases classified elsewhere, unspecified severity, without behavioral disturbance, psychotic disturbance, mood disturbance, and anxiety; I11.0 Hypertensive heart disease with heart failure; G20.A1 Parkinson's disease without dyskinesia, without mention of fluctuations; Z66 Do not resuscitate
CPT/HCPCS: 71046; 74176; 80048; 80053; 81003; 81015; 82248; 85025; 85610; 85730; 87070; 87077; 87086; 87186; 87324; 87449; 87502; 87807; 87811; 99285

== ENCOUNTER 2024-05-22 15:12 | Inpatient (IN) | payer MEDICARE, SELFPAY ==
[2024-05-22] VITALS (21 sets, daily range): BP systolic 100–143; BP diastolic 56–77; BMI 26.1
--- NOTE | 2024-05-22 11:34 | ED.GENMED ---
History of Present Illness
General
Chief Complaint: Breathing Problem
Time Seen by Provider: 05/22/24 11:25
History of Present Illness
History of Present Illness:
88-year-old male with history of dementia presents to the emergency department from a nursing facility for evaluation of hypoxia and fatigue. He is reportedly at his baseline mental status which is AO x 1. He can offer no history. On arrival was
noted to have room air saturations in the mid 80s, no prior supplemental oxygen need. Was discharged in this hospital just over 1 week ago for hematuria and is currently on cefdinir for 1 further day for UTI. He was previously anticoagulated on
Xarelto however this was held during recent hospital stay for hematuria and is set to resume tomorrow
Past History
Past History
ED Past Medical History: CAD, COPD, HTN, Hypercholesterolemia, Other (Dementia, Parkinson's) and Other (Prostate hypertrophy)
ED Past Surgical History: Orthopedic (Bilateral knee replacements, right total hip, total L hip), Urological (Right nephrectomy) and Other (removal cystocele)
Social History
Tobacco: Former smoker
Alcohol: None
Drug: None
Personal:
Living: alone
Employment: Retired
Family History
Family History: Other
Review of Systems
Review of Systems
Allergies reviewed?: Yes
All Other Systems: ROS reviewed and negative except as documented in HPI and ROS
Phy Exam
Physical Exam
Physical Exam:
GEN: Sleeping, arouses to voice, tachypneic
Eyes: PERRLA, EOMs intact, no scleral icterus
HENT: NCAT, oral mucosa moist, no JVD
Lungs: Tachypneic, no biostatistician muscle use, crackles at the bases
Cardiac: RRR, no M/R/G, no peripheral edema. Radial pulses 2+ bilat
Abdomen: S, NT, ND, NABS, no masses or hepatosplenomegaly
Neuro: AO x 3, no focal deficits to BUE/BLE, normal sensation throughout
MSK: No gross deformity or ecchymosis. +1 pitting edema to left lower extremity with mild circumferential erythema
Skin: No rashes, petechiae. Normal color, no pallor or jaundice.
Psych: Calm, cooperative, proper hygiene
Scores
Heart Failure Risk
Heart Failure Risk Score: Not Applicable
Course
Orders/Labs/Results
Orders:
Orders
05/22/24 11:25
CR Chest - 2 Views Urgent
Comment:
Reason For Exam: sob'
05/22/24 11:29
Complete Blood Count/With Diff Urgent
Comprehensive Metabolic Panel Urgent
NT-proBNP Urgent
Troponin I Urgent
Comment: ADD ON
05/22/24 11:35
Electrocardiogram (*1) Urgent
Reason for Study: Shortness of Breath
EKG- Treatment ONCE
05/22/24 11:36
Add On- LAB Urgent
Tests Added?: troponin
05/22/24 11:38
COVID-19 Antigen Urgent
Source: Nasal Swab
Influenza A+B Rapid Molecular Urgent
GENESIS Source: Nasal Swab
Specimen Description:
05/22/24 12:43
CT Chest Pe Study Urgent
Comment:
Reason For Exam: hypoxia
05/22/24 14:05
Heparin 7,400 units IV NOW STA
Nursing to Place Non Medication Order As Directed
Physician Order: PTT 6 hours after initial start of Heparin infusion
05/22/24 14:15
Heparin 08792 Units/250 ml 25,000 units in 250 ml IV PER PROTOCOL
Weight to be used for heparin protocol in kilograms (kg):: 92
Protocol:: DVT/PE
PTT Goal Range to be used:: PTT 73 to 111 seconds
Order type:: Initial
INITIAL Infusion Dose (UNITS/KG/hr) & then follow protocol:: 18 units/kg/hr
Infusion Dose in UNITS/hr & then follow protocol (UNITS/hr):: 1,700
INFUSION RATE in mL/hr & then follow protocol (mL/hr):: 17
For DVT/PE algorithm, re-bolus for low PTT?: Yes
PTT less than or equal to 64 seconds:: Re-bolus 80 units/kg (max 10,000units). Increase by 400 units/hr
(+ 4mL/hr)
PTT 64.1 to 72.9 seconds:: Re-bolus 40 units/kg (max 5,000 units). Increase by 200 units/hr
(+ 2mL/hr)
PTT 73 to 111 seconds:: Target Range. No change in rate.
PTT 111.1 to 130.9 seconds:: Decrease rate by 200 units/hr (- 2 mL/hr)
PTT 131 to 199.9 seconds:: HOLD for 1 hr. Then decrease by 300 units/hr (- 3mL/hr)
PTT greater than or equal to 200 seconds:: HOLD for 2 hrs & Notify Provider. Then decrease by 400 units/hr
(- 4mL/hr)
Lab follow-up:: Each change, PTT q6h until 2 consecutive are therapeutic. Then
PTT daily.
05/22/24 14:17
PTT Urgent
Comment: Obtain baseline before beginning heparin infusion if not already collected
05/22/24 14:25
Heparin 3,700 units IV PRN PRN
Heparin 7,400 units IV PRN PRN
05/22/24 15:02
Admit/Transfer Patient As Directed
Co-Sign Provider:
Level of Care: Inpatient admission
Assign to:: Telemetry
Physician / Group: [email or web address]
Diagnosis: acute PE, HX hematuria and UTI, Suspect NIMI ,CXKD3a
Reason for Telemetry: Arrhythmia
Date to Stop Telemetry: 05/25/24
Time to Stop Telemetry: 11:00
Reason for Hospitalization: acute PE, HX hematuria and UTI, Suspect NIMI ,CXKD3a
Expected length of stay greater than two midnights?: Yes
ELOS- Estimated Length of Stay in days: 3
I certify the patient meets the requirements for IP care: Yes
05/22/24 15:05
Code Status As Directed
Resuscitation Status: Do not resuscitate
Based on pt advanced directive or healthcare POA form: Yes
05/22/24 15:07
DNR Bracelet Application ONCE
05/22/24 20:50
Protime/PTT Routine
05/25/24 11:00
DC Protocol for Telemetry ONCE
Abnormal Lab Results
05/22/24 05/22/24
11:29 14:17
RBC 4.07 L 10^6/uL
(4.70-6.10)
Hgb 11.8 L g/dL
(13.0-18.0)
Hct 36.8 L %
(39.0-52.0)
MCHC 32.1 L g/dL
(33.0-37.0)
RDW 14.6 H %
(11.5-14.5)
MPV 11.3 H fL
(7.4-10.4)
Abs Immat Gran (auto) 0.1 H 10^3/uL
(0-0.05)
Absolute Neuts (auto) 8.8 H 10^3/uL
(1.4-6.5)
Absolute Lymphs (auto) 0.8 L 10^3/uL
(1.2-3.4)
Absolute Monos (auto) 0.8 H 10^3/uL
(0.1-0.6)
Neutrophils % 82.3 H %
(42.2-75.2)
Lymphocytes % 7.8 L %
(20.5-51.1)
APTT 38.4 H Sec
(23.4-35.0)
Chloride 111 H mmol/L
(98-107)
BUN 40 H mg/dl
(9-20)
Creatinine 1.5 H mg/dL
(0.7-1.3)
Glucose 109 H mg/dl
(70-99)
Troponin I 0.054 H* ng/ml
Total Protein 5.8 L g/dl
(6.3-8.2)
Albumin 2.9 L g/dl
(3.5-5.0)
05/22/24 11:29
05/22/24 11:29
Vital Signs
Initial and Last Documented VS:
Initial Vital Signs
Temp Pulse Resp BP Pulse Ox
97.5 F 58 18 111/58 92
05/22/24 11:17 05/22/24 11:17 05/22/24 11:17 05/22/24 11:17 05/22/24 11:17
Last Documented Vital Signs
Temp Pulse Resp BP Pulse Ox
97.5 F 55 20 122/68 98
05/22/24 11:17 05/22/24 15:30 05/22/24 15:30 05/22/24 15:30 05/22/24 15:30
MDM/Problems Addressed
MDM/Problems Addressed:
Bilateral pulmonary embolisms seen on CT with no evidence of right heart strain. He is hypoxic but otherwise hemodynamically stable. Initiated heparin in the emergency department will admit for further management
*Critical Care Note
Total Time (30-74mins, 75-104mins- exclusive of procedures): Not Applicable
ED Attending Note
-
Portions of this chart may have been created with voice recognition software.� Occasional wrong word or��sound alike� substitutions may have occurred due to the inherent limitations of voice recognition software.
Discharge Plan
Departure
Patient Disposition: Admit
Date of Disposition: 05/22/24
Time of Disposition: 14:07
Admit to: Med/Surg
Presentation/result/management discussed w/ accepting MD/DO: Hospitalist
Discharge Problem:
Bilateral pulmonary embolism
Interventions
Interventions:
*Risk Screen - Suicide Last Done: 05/22/24 11:17
*General Assessment Last Done: 05/22/24 11:17
*Neglect/Abuse Screening Last Done: 05/22/24 11:17
ED- Cardiac Assessment Last Done: 05/22/24 12:45
ED- Pulmonary Assessment Last Done: 05/22/24 12:45
[2024-05-22 11:52] LABS: % Basophils 0.3 % (0-2); % Eosinophils 1.8 % (0-6); % Immature Granulocytes 0.5 % (0-0.5); % Lymphocytes 7.8 % (20.5-51.1); % Monocytes 7.3 % (1.7-9.3); % Neutrophils 82.3 % (42.2-75.2); Absolute Eosinophils 0.2 10^3/uL (0-0.7); Absolute Immature Granulocytes 0.1 10^3/uL (0-0.05); Absolute Lymphocytes 0.8 10^3/uL (1.2-3.4); Absolute Monocytes 0.8 10^3/uL (0.1-0.6); Absolute Neutrophils 8.8 10^3/uL (1.4-6.5); Hematocrit 36.8 % (39.0-52.0); Hemoglobin 11.8 g/dL (13.0-18.0); Mean Corp Hgb Conc. 32.1 g/dL (33.0-37.0); Mean Corpuscular Volume 90.4 fL (80.0-94.0); Mean Platelet Volume 11.3 fL (7.4-10.4); Nucleated Red Blood Cells % 0 % (-); Platelet Count 185 10^3/uL (130-400); Red Blood Cell Count 4.07 10^6/uL (4.70-6.10); Red Cell Dist. Width 14.6 % (11.5-14.5); White Blood Cell Count 10.7 10^3/uL (4.8-10.8)
[2024-05-22 11:57] LABS: ALT (SGPT) 22 U/L (0-50); AST (SGOT) 25 U/L (17-59); Albumin 2.9 g/dl (3.5-5.0); Alkaline Phosphatase 76 U/L (38-126); Blood Urea Nitrogen 40 mg/dl (9-20); Calcium 8.4 mg/dl (8.4-10.2); Carbon Dioxide 28 mmol/L (22-30); Chloride 111 mmol/L (98-107); Glucose 109 mg/dl (70-99); Potassium 4.2 mmol/L (3.5-5.1); Sodium 145 mmol/L (135-145); Total Bilirubin 1.3 mg/dl (0.2-1.3); Total Protein 5.8 g/dl (6.3-8.2); eGFR 45.06
[2024-05-22 12:05] LABS: COVID-19 Antigen Negative (Negative)
[2024-05-22 12:06] LABS: NT-proBNP 1100 pg/ml
[2024-05-22 12:48] LABS: Troponin I 0.054 ng/ml
[2024-05-22 14:38] LABS: APTT 38.4 Sec (23.4-35.0)
[2024-05-22] MEDS: HEPARIN 25000 UNITS/250 ML IV (14:41)
[2024-05-22] MEDS: HEPARIN 7400 UNITS IV (14:44)
--- NOTE | 2024-05-22 14:57 | HPS.HSE ---
Family Physician
-
Family Physician: Kanu Yu
Chief Complaint
-
For evaluation of hypoxia and fatigue.
History of Present Illness
I could not get any information from the patient due to dementia
Information gathered by chart review and speaking with the ER staff.
HPI:
88M Res of local nursing facility HX dementia, recent admission for Hematuria due to UTI and Xarelto which was held since last admission seen at ER:
- for evaluation of hypoxia and fatigue.
- Reportedly at his baseline mental status which is AO x 1
- On arrival was noted to have room air saturations in the mid 80s, no prior supplemental oxygen need.
- He was discharged in this hospital just over 1 week ago for hematuria and is currently on cefdinir for 1 further day for UTI. - Held Xareltosince last admission due to above
Medical History
Past Medical History
Past Medical History: Reports Other
Additional Past Medical History:
CAD
COPD
Primary hypertension
Hyperlipidemia
Parkinson disease
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
Nonessential tremors
BPH
Gilbert disease
Past Surgical History: Reports Other
Additional Past Surgical History:
Bilateral knee replacement
Right nephrectomy
Right hip arthroplasty
Social History
Tobacco: Former Smoker
Living: [facility]
Family History
Family History: Not pertinent
Allergies / Home Medications
Allergies reflects when Allergies were last updated in [facility].
Home Medications with original date entered in [facility]
Allergy/Medication List:
Allergies
Allergy/AdvReac Type Severity Reaction Status Date / Time
NKA - No Known Allergies Allergy Unknown Unknown Uncoded 05/09/24 15:52
Home Medications
tamsulosin 0.4 mg capsule 0.4 mg PO DAILY Urinary issue 06/21/19
donepezil 23 mg tablet 23 mg PO QPM Neurological Condition 05/25/21
memantine 10 mg tablet 10 mg PO BID Neurological Condition 05/25/21
multivitamin with folic acid 400 mcg tablet (Tab-A-Kyra) 1 tab PO DAILY Supplement 05/25/21
loratadine 10 mg tablet 10 mg PO DAILY 11/20/22
midodrine 5 mg tablet 10 mg PO TID 11/20/22
rivaroxaban 20 mg tablet (Xarelto) 20 mg PO QPM Blood clot prevention/tx 11/20/22
acetaminophen 325 mg tablet (Tylenol) 650 mg PO Q4HPRN PRN MILD PAIN 05/09/24
amiodarone 200 mg tablet 200 mg PO BID 05/09/24
benzonatate 100 mg capsule 100 mg PO TIDPRN PRN COUGH 05/09/24
dextromethorphan-guaifenesin 30 mg-600 mg tablet extended sooblcd87 hr (Mucinex DM) 1 tab PO [id number] PRN COUGH 05/09/24
guaifenesin 100 mg/5 mL oral liquid 200 mg PO Q6HPRN PRN COUGH 05/09/24
magnesium hydroxide 400 mg/5 mL oral suspension (Milk of Magnesia) 2,400 mg PO DAILYPRN PRN CONSTIPATION 05/09/24
nystatin 100,000 unit/gram topical powder (Nystop) 1 applic topical TIDPRN PRN SACRAL AREA 05/09/24
Review of Systems
-
Unable to obtain full review of systems at this time due to: Dementia
Physical Exam
Vital Signs
Vital Signs
Temp Pulse Resp BP Pulse Ox
97.5 F 58 18 111/58 92
05/22/24 11:17 05/22/24 11:17 05/22/24 11:17 05/22/24 11:17 05/22/24 11:17
Physical Exam
General: Well Developed, Well Nourished, No Apparent Distress and Appears Chronically Ill
HEENT: NormoCephalic, Moist mucous membranes, Atraumatic and Nose Appears Normal
Respiratory: Clear
Cardiac: S1/S2, Regular Rhythm and Murmur; No Rub
GI: Soft, Non Tender, Non Distended and Normal Bowel Sounds; No Organomegaly
Rectal: Deferred by Provider
Musculoskeletal: No Clubbing, No Cyanosis and No Edema
Skin: No Rash
Neuro: Awake and Nonfocal/grossly intact
Psych: Confused and Apparent Dementia
Laboratory Results
-
05/22/24 11:29
05/22/24 11:29
Laboratory Results
APTT 38.4 Sec (23.4-35.0) H 05/22/24 14:17
Total Bilirubin 1.3 mg/dl (0.2-1.3) 05/22/24 11:29
AST 25 U/L (17-59) 05/22/24 11:29
ALT 22 U/L (0-50) 05/22/24 11:29
Alkaline Phosphatase 76 U/L (38-126) 05/22/24 11:29
Troponin I 0.054 ng/ml H* 05/22/24 11:29
Data Reviewed
-
Diagnostic Radiology: Report Reviewed by me
CT Scan: Report Reviewed by me
Medical Tests (Nuc Med, Echo, EKG etc): Report Reviewed by me
Lab Data: Labs Reviewed by me
Old Records: Reviewed
Impression/Plan
-
Reviewed VS: BP 111/58 HR 58 POx as low as 92 %
PE
GEN: Sleeping, arouses to voice, tachypneic
HEENT: Eyes: no scleral icterus, NCAT, oral mucosa moist
Neck: no JVD
Lungs: Tachypneic, crackles at the bases
Cardiac: RRR, no M/R/G, no peripheral edema.
Abdomen: S, NT, ND, NABS
Neuro: AO x 1, no focal deficits to BUE/BLE
MSK: No gross deformity or ecchymosis. +1 pitting edema to left lower extremity with mild circumferential erythema
Skin: No rashes, petechiae. Normal color, no pallor or jaundice.
Psych: Calm, cooperative, proper hygiene
Data
Laboratory Tests
05/14/24 05/22/24 05/22/24
07:53 11:29 11:38
WBC 10.7
Hgb 13.6 11.8 L
MCV 90.4
Plt Count 185
Potassium 4.2
BUN 40 H
Creatinine 1.5 H 1.5 H
eGFR 45.06 45.06
Troponin I 0.054 H*
Ydl-I-Evskfqumlkn Pept 1100
SARS-CoV-2 Antigen Negative
EKG report
SINUS BRADYCARDIA
LEFT AXIS DEVIATION
NON-SPECIFIC INTRA-VENTRICULAR CONDUCTION BLOCK
MINIMAL VOLTAGE CRITERIA FOR LVH, MAY BE NORMAL VARIANT ( [place] product )
NONSPECIFIC T WAVE ABNORMALITY
SEPTAL OH
ABNORMAL ECG
WHEN COMPARED WITH ECG OF 20-NOV-2022 11:23,SINUS RHYTHM HAS REPLACED ATRIAL FLUTTER
VENT. RATE HAS DECREASED BY 36 BPM
T WAVE INVERSION NOW EVIDENT IN INFERIOR LEADS
Confirmed by MELISA MOLINA MD ([id number]) on 05/22/2024 1:25:59 PM
CXR
No acute cardiopulmonary process.
CT Chest Pe Study
1. Positive for bilateral pulmonary thromboembolus with a moderate clot burden.
2. Small left pleural effusion.
3. Chronic elevation of the left hemidiaphragm and compressive atelectasis on the left lower lobe.
4. Additional chronic findings, as detailed above.
Last hospitalist admission: Date of Admission: 05/09/24 -Date of Discharge: 05/14/24
DC Dx:
Gross hematuria
UTI with Proteus mirabilis
Of Note:
Urology evaluated and started CBI, Xarelto was held. Was started on broad-spectrum antibiotics, urinalysis consistent with infection of urine. Culture returned positive for Proteus with sensitivity to third-generation cephalosporins. Ultimately
was transition to cefdinir with plan to complete 14-day course of antibiotics. Trial of void was successful in the hospital. Plan to hold Xarelto until course of antibiotics is complete (can resume Xarelto morning after 14th day of antibiotics).
Should have risk/benefits discussion with PCP on long-term benefits of anticoagulation with his present comorbidities
ASSESSMENT & PLAN
Bilateral PE with moderate clot burden
- Recently had thinners d/c due to hematuria
- Heparin gtt hypoxic but otherwise stable, no indication for lysis particularly given age and dementia
- O2 supplement to titrate to keep POx > 93
- ECHO in AM
- Pul consulted
Elevated TPNI with abn EKG
Unable to provid HX due to dementia
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
- Trend TPNI
- await ECHO
- Card consult
At risk for recurent hematuria due to necessasry heparin gtt for acute PE
HX renal cell carcinoma s/p nephrectomy
HX recent with Proteus mirabilis
- Recent CT A/P showed 3 left-sided ureteral calculi with mild distention of mid to distal ureter
- c/w TECHNICAL AIDE Cefdinir to comlete total 14 days
HX Paroxysmal AF
-Nonvalvular; home medications include amiodarone
- Holding Xarelto
- No known history of electrophysiologic interventions
Lethargic - Element of TME due to hypoxia and recent UTI
AAO x 1 at baseline HX MARISEL
- Falls precaution and aspiration precautions
Alzheimer dementia
HX Mild chronic dysphagia
-Avoid benzodiazepines, continue with memantine at donepezil
-Continue with nectar thick liquid consistency
Chronic HFpEF: stable
Chr hypotensive
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
- Not currently on GDMT or standing diuretic therapy
- Is chronically on midodrine 10 mg 3 times daily
-Appears euvolemic
Nonessential tremors
- Unclear etiology, likely associated with Parkinson's history
DVT prophylaxis: Heparin gtt for acute PE
Diet: Cholesterol-lowering, honey thick liquids
CODE STATUS: DNR
IP TLM
--- NOTE | 2024-05-22 20:00 | PTCARENOTE ---
05/22 Received Patient from ED. Patient transferred directly to the bed from the stretcher. Heparin gtt running at 1700 units per hour. Patient assessed. VSS. Patient oriented to the unit. Call mccrary in reach. Patient confused and oriented to self.
Bed alarm placed for safety.
[2024-05-22] MEDS: ATIVAN 0.5 MG PO (21:16)
[2024-05-22] MEDS: PACERONE 200 MG PO (21:16)
[2024-05-22] MEDS: ProAmatine 10 MG PO (21:16)
[2024-05-22] MEDS: NAMENDA 10 MG PO (21:17)
[2024-05-22] MEDS: ARICEPT 10 MG PO (21:17)
[2024-05-22 21:57] LABS: INR 1.24; PT 15.9 Sec (11.4-14.6)
[2024-05-22 22:11] LABS: APTT > 200 Sec (23.4-35.0)
--- NOTE | 2024-05-22 22:34 | PTCARENOTE ---
Notified covering provider of patient on Heparin gtt with PTT > 200. Will follow protocol as advised.
[2024-05-23 03:06] VITALS: BP 113/60
[2024-05-23 06:40] LABS: Hematocrit 39.2 % (39.0-52.0); Hemoglobin 12.5 g/dL (13.0-18.0); Mean Corp Hgb Conc. 31.9 g/dL (33.0-37.0); Mean Corpuscular Hgb 28.8 pg (27.0-31.0); Mean Corpuscular Volume 90.3 fL (80.0-94.0); Mean Platelet Volume 10.9 fL (7.4-10.4); Platelet Count 161 10^3/uL (130-400); Red Blood Cell Count 4.34 10^6/uL (4.70-6.10); Red Cell Dist. Width 14.6 % (11.5-14.5); White Blood Cell Count 14.3 10^3/uL (4.8-10.8)
[2024-05-23 06:41] LABS: INR 1.22; PT 15.7 Sec (11.4-14.6)
[2024-05-23 06:43] LABS: APTT 89.2 Sec (23.4-35.0)
[2024-05-23 06:56] LABS: Troponin I 0.091 ng/ml
[2024-05-23 08:00] VITALS: BP 127/77
--- NOTE | 2024-05-23 08:40 | CON.PUL ---
Consultation
Consultation Request
Date/Time Consultation Requested: 05/22/20242215
Date/Time Consultation Performed: 05/23/2024836
Requesting Provider: Dr. Macario
Performing Provider: Dr. Ndiaye
Reason for Consultation: Acute PE
Medical History
-
Chief Complaint: Generalized pain
History of Present Illness:
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
to have low oxygen levels. Per EMS, oxygen levels were in the 80s on room air. In the ER he was afebrile to 97.5 �F, pulse rate 58, respiratory rate 18 breaths/min, BP 111/58 and saturating 92% on 4 L/min nasal cannula. Initial labs showed Hb
11.8, creatinine 1.5, troponin 0.054, proBNP 1100, and COVID-19 antigen negative. CXR showed no acute cardiopulmonary process, and CTA chest showed bilateral pulmonary emboli with moderate clot burden and no evidence for RV strain. Also a small
left-sided pleural effusion with chronic elevation of the left hemidiaphragm. He was started on heparin and admitted to telemetry. Pulmonary service now consulted for additional management/recommendations per
PMHx: Chronic systolic heart failure, hypertension, Parkinson's disease, hyperlipidemia, A-fib on Xarelto, CAD, BPH, dementia, orthostasis on midodrine
PSHx: Bilateral hip surgeries, bilateral knee surgeries, right nephrectomy (2006), partial TURP (2020), cystocele repair
Past Medical History
Past Medical History: Other (Above as per HPI)
Past Surgical History: Other (Above as per HPI)
Social History
Tobacco: Former Smoker
Alcohol: None
Drug: None
Family History
Family History: Diabetes (Mother)
Allergies / Home Medications
Allergies
Allergy/AdvReac Type Severity Reaction Status Date / Time
No Known Allergies Allergy Unverified 05/22/24 20:21
Home Medications
�Medication �Instructions �Recorded �Confirmed �Last Taken �Type
tamsulosin 0.4 mg capsule 0.4 mg PO DAILY Urinary issue 06/21/19 05/22/24 Unknown History
donepezil 23 mg tablet 23 mg PO QPM Neurological Condition 05/25/21 05/22/24 Unknown History
memantine 10 mg tablet 10 mg PO BID Neurological Condition 05/25/21 05/22/24 Unknown History
multivitamin with folic acid 400 1 tab PO DAILY Supplement 05/25/21 05/22/24 Unknown History
mcg tablet (Tab-A-Kyra)
loratadine 10 mg tablet 10 mg PO DAILY Allergies 11/20/22 05/22/24 Unknown History
midodrine 5 mg tablet 10 mg PO TID Blood Pressure 11/20/22 05/22/24 Unknown History
acetaminophen 325 mg tablet 650 mg PO Q4HPRN PRN MILD PAIN 05/09/24 05/22/24 Unknown History
(Tylenol)
amiodarone 200 mg tablet 200 mg PO BID Arrhythmia 05/09/24 05/22/24 Unknown History
benzonatate 100 mg capsule 100 mg PO TIDPRN PRN COUGH 05/09/24 05/22/24 Unknown History
dextromethorphan-guaifenesin 30 1 tab PO [id number] PRN COUGH 05/09/24 05/22/24 Unknown History
mg-600 mg tablet extended
[id number] hr (Mucinex DM)
guaifenesin 100 mg/5 mL oral liquid 100 mg PO Q6HPRN PRN COUGH 05/09/24 05/22/24 Unknown History
magnesium hydroxide 400 mg/5 mL 2,400 mg PO DAILYPRN PRN 05/09/24 05/22/24 Unknown History
oral suspension (Milk of Magnesia) CONSTIPATION
nystatin 100,000 unit/gram topical 1 applic topical TIDPRN PRN SACRAL 05/09/24 05/22/24 Unknown History
powder (Nystop) AREA
cefdinir 300 mg capsule 300 mg PO Q12 UTI 9 days #18 caps 05/14/24 05/22/24 Unknown Rx
folic acid 400 mcg tablet 0.4 mg PO DAILY Supplement 05/22/24 05/22/24 Unknown History
loperamide 2 mg tablet 2 mg PO Q4HPRN PRN diarrhea 05/22/24 05/22/24 Unknown History
lorazepam 0.5 mg tablet 0.5 mg PO BID Mental Health/Anxiety 05/22/24 05/22/24 Unknown History
potassium chloride 20 mEq 20 meq PO DAILY Electrolyte 05/22/24 05/22/24 Unknown History
tablet,extended release Repletion
rivaroxaban 20 mg tablet (Xarelto) 20 mg PO .HOLD Blood Clot 05/22/24 05/22/24 05/09/24 History
Prevention/Tx
Review of Systems
-
Unable to Obtain full review of systems at this time due to: Dementia
Vitals / Labs / Diagnostic Testing
Vital Signs
Temp Pulse Resp BP Pulse Ox
98.1 F 61 22 127/77 95
05/23/24 08:00 05/23/24 08:00 05/23/24 08:00 05/23/24 08:00 05/23/24 08:00
Lab Data
05/23/24 06:15
05/22/24 11:29
Laboratory Results
05/22/24 05/22/24 05/23/24
14:17 21:23 06:15
PT 15.9 H 15.7 H
INR 1.24 1.22
APTT 38.4 H > 200 H* 89.2 H
Microbiology
05/22/24 11:38 Nasal Swab Influenza Types A & B (CARLYLE) - Final
Negative for Influenza A & B, NAAT
Negative results must be combined with clinical observations
and patient history.
Nucleic Acid Amplification test (NAAT)performed on the
[employer] platform.
Diagnostic Testing:
Physical Exam
-
HEENT: Normocephalic and Anicteric
Cardiovascular: S1/S2, Rub (negative) and Peripheral Edema (negative)
Respiratory: Wheeze (negative), Rales (negative), Rhonchi (negative) and Accessory Resp Muscle Use (negative)
GI: Soft, Non Distended, Non Tender and Normal Bowel Sounds
Neurology: Awake, Alert and Tremors (negative)
Skin: Warm and Dry
General: Respiratory Distress (negative), Comfortable, Fever (negative) and Chills (negative)
Assessment
-
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
pain and found to have low oxygen levels. Per EMS, oxygen levels were in the 80s on room air. In the ER he was afebrile to 97.5 �F, pulse rate 58, respiratory rate 18 breaths/min, BP 111/58 and saturating 92% on 4 L/min nasal cannula. Initial
labs showed Hb 11.8, creatinine 1.5, troponin 0.054, proBNP 1100, and COVID-19 antigen negative. CXR showed no acute cardiopulmonary process, and CTA chest showed bilateral pulmonary emboli with moderate clot burden and no evidence for RV strain.
Also a small left-sided pleural effusion with chronic elevation of the left hemidiaphragm. He was started on heparin and admitted to telemetry. Pulmonary service now consulted for additional management/recommendations per
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
Impression:
#Bilateral pulmonary embolism without RV strain involving left upper lobe + right lung (PESI score: 106, class IV: 4-11.4% 30 day mortality risk)
#Elevated troponin likely due to above in the setting of acute PE with demand ischemia/type II [place]
#Left lower lobe pleural effusion with adjacent consolidative opacification
#Acute respiratory failure with hypoxia due to the above
#Leukocytosis likely reactive due to above
#Chronic anemia (baseline Hb 12�13.5g/dL)
#CKD (baseline creatinine 1.2�1.3)
#Left hemidiaphragm elevation
#Chronic hypotension on midodrine
#BPH
#CAD
#A-fib on Xarelto
#Parkinson disease
#Dementia
#Chronic HF,rEF (LVEF: 50% via TTE from 01/2020)
Plan:
- Continue with systemic anticoagulation, currently on heparin drip
- Check lower extremity duplex
- Check transthoracic echo
- Given that he remains hemodynamically stable without RV strain on CTA chest, no need for catheter directed thrombolysis or suction thrombectomy at this time
- Continue with amiodarone
- Considering that the patient takes Xarelto as an outpatient, this is concerning for failure while on NOAC --> consult hematology for discussion on which anticoagulation to start patient
- Continue trending troponin until it has started to downtrend
- Maintain SpO2 >90-94% with supplemental O2 and wean down as tolerated --> if resting SpO2 is <96% then check ambulatory pulse oximetry prior to discharge
- Recommend outpatient PFTs
- Incentive spirometer encouraged q1hr while awake
- Replete electrolytes with K>4, Mg>2
- Maintain euglycemia with goal BG >100 and <180
- prn nebulized bronchodilators � not currently bronchospastic
- DVT ppx - currently on heparin drip
Pulmonary service will continue to follow along.
Data:
CTA Chest 05/22/2024:
1. Positive for bilateral pulmonary thromboembolus with a moderate clot burden.
2. Small left pleural effusion.
3. Chronic elevation of the left hemidiaphragm and compressive atelectasis on the left lower lobe.
4. Additional chronic findings, as detailed above.
Total time spent today was 56 minutes for this encounter. Time includes reviewing laboratory test/imaging results, reviewing pertinent medical records, obtaining and reviewing medical history, performing an appropriate exam, ordering medications,
tests and procedures. Time also includes documentation of this encounter, coordinating patient care and communicating with other healthcare professionals. Total time does not include separately billed tests performed on this date of service.
[2024-05-23] MEDS: KCL 20 MEQ PO (10:21)
[2024-05-23] MEDS: FLOMAX 0.4 MG PO (10:21)
[2024-05-23] MEDS: PACERONE 200 MG PO ×2 (10:22→20:19)
[2024-05-23] MEDS: ATIVAN 0.5 MG PO ×2 (10:22→20:18)
[2024-05-23] MEDS: ProAmatine 10 MG PO ×3 (10:22→17:23)
[2024-05-23] MEDS: NAMENDA 10 MG PO ×2 (10:22→20:18)
[2024-05-23] MEDS: HEPARIN 25000 UNITS/250 ML IV (10:32)
--- NOTE | 2024-05-23 10:44 | W.PN.HOSP.TC ---
Today's Communication/Plan
-
Continue with IV heparin ,follow for any recurrence of hematuria
Assessment / Plan
Assessment / Plan
Bilateral PE with moderate clot burden
- BP stable this am
-Is not tachycardic. Saturating okay on 2 L.
- Recently had thinners d/c due to hematuria
- cw Heparin gtt today and consider transition to Xarelto if no hematuria
- O2 supplement to titrate to keep POx > 93
- ECHO in AM
- Pul consulted
Elevated TPNI with abn EKG
HX due to dementia
Denies CP
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
- Trend TPNI
- await ECHO
- Card consult
At risk for recurent hematuria due to necessasry heparin gtt for acute PE
HX renal cell carcinoma s/p nephrectomy
HX recent with Proteus mirabilis
- Recent CT A/P showed 3 left-sided ureteral calculi with mild distention of mid to distal ureter
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
HX Paroxysmal AF
-Nonvalvular; home medications include amiodarone
- Holding Xarelto
- No known history of electrophysiologic interventions
Alzheimer dementia
HX Mild chronic dysphagia
-Avoid benzodiazepines, continue with memantine at donepezil
-Continue with nectar thick liquid consistency
Chronic HFpEF: stable
Chr hypotensive
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
- Not currently on GDMT or standing diuretic therapy
- Is chronically on midodrine 10 mg 3 times daily
-Appears euvolemic
Nonessential tremors
- Unclear etiology, likely associated with Parkinson's history
DVT prophylaxis: Heparin gtt for acute PE
Diet: Cholesterol-lowering, honey thick liquids
CODE STATUS: DNR
IP TLM
DW RN
DW Cards - suspect trops sec to PE
Total time spent on today's encounter was 52 minutes which included time spent in counseling the patient/family regarding diagnosis and treatment plan as listed above, goals of care, and symptom management. Case was discussed with nursing staff,
specialists, and care coordinators/case management. All labs and imaging personally reviewed by me. Remainder the time spent in detailed review of previous records, lab data, imaging, and other medical provider documentation.
Anticipated Discharge: 24 - 48 hours
Subjective/Interval History
-
Date of Service: May 23, 2024
No overnight events reported by RN
This morning he was sleepy but was arousable. He thought he was in [facility].
He has a history of cognitive impairment.
Denies any shortness of breath or chest pain. No distress noted.
Objective Data
-
Labs:
Laboratory Results
05/23/24 05/23/24
06:15 12:16
WBC 14.3 H
Hgb 12.5 L
Hct 39.2
Plt Count 161
PT 15.7 H
INR 1.22
APTT 89.2 H Pending
Vital Signs:
Vital Signs
Temp Pulse Resp BP Pulse Ox
98.1 F 61 22 127/77 95
05/23/24 08:00 05/23/24 08:00 05/23/24 08:00 05/23/24 08:00 05/23/24 08:00
Review of Systems
-
Unable to obtain full review of systems at this time due to: Dementia
Physical Exam
-
General: No Apparent Distress
HEENT: Moist Mucous Membranes
Respiratory: Non Labored Respirations and Other (on 2l NC); Negative Accessory Resp Muscle Use
Cardiac: Regular Rhythm and S1/S2; Negative Murmur
GI: Soft and Normal Bowel Sounds
Neuro: Other (sleepy but arousable; moves all 4 limbs but doesnt follow commands)
Psych: Calm and Confused; Negative Agitated
Data Reviewed
-
Labs: Labs Reviewed by me
--- NOTE | 2024-05-23 11:11 | PTCARENOTE ---
Pt is a feed and ate 10% of his breakfast.
[2024-05-23 12:00] VITALS: BP 116/57
[2024-05-23 12:26] LABS: APTT 126.3 Sec (23.4-35.0)
[2024-05-23 12:59] LABS: Glycohemoglobin (HgbA1c) 5.4 % (4.0-5.6)
[2024-05-23] MEDS: OMNICEF 300 MG PO ×2 (13:05→20:18)
--- NOTE | 2024-05-23 13:46 | CM ---
Patient seen at bedside with daughter present. Patient more sleepy than normal per patient daughter. Patient lives in memory care unit of [facility]. Per daughter patient has a wheelchair and a walker at the facility but has been increasingly in
wheelchair lately. Patient PCP is Dr. Yu and they use the [facility] pharmacy per daughter. Patient has needed more than one person assistance recently and patient daughter indicated that she had confidence that patient would be able to
return to facility. CM will call to facility to confirm ability to accept. Per daughter no outside VN or supports have been needed. CM will continue to follow for discharge planning needs.
Plan; return to facility. watch for SNF placement needs
[2024-05-23 16:30] VITALS: BP 113/71
[2024-05-23] MEDS: TYLENOL 650 MG PO (17:22)
[2024-05-23] MEDS: ARICEPT 10 MG PO (17:26)
[2024-05-23 19:42] VITALS: BP 141/89
--- NOTE | 2024-05-23 20:47 | PTCARENOTE ---
Patient has a fever but isn't due for Tylenol. Advised covering provider. Will place a cold compress on forehead and check temp again.
[2024-05-23 20:54] LABS: APTT 59.7 Sec (23.4-35.0)
[2024-05-23] MEDS: HEPARIN 7400 UNITS IV (21:06)
[2024-05-23 21:24] LABS: Troponin I 0.066 ng/ml
[2024-05-23 23:08] VITALS: BP 118/84
[2024-05-24 03:54] VITALS: BP 126/74
[2024-05-24 04:02] LABS: APTT 196.3 Sec (23.4-35.0)
[2024-05-24 06:11] LABS: Blood Urea Nitrogen 37 mg/dl (9-20); Calcium 8.4 mg/dl (8.4-10.2); Carbon Dioxide 28 mmol/L (22-30); Chloride 113 mmol/L (98-107); Estimated Creatinine Clearance 41 ml/min; Glucose 116 mg/dl (70-99); Sodium 149 mmol/L (135-145); eGFR 45.06
[2024-05-24 06:16] LABS: Hematocrit 43.2 % (39.0-52.0); Hemoglobin 13.3 g/dL (13.0-18.0); Mean Corp Hgb Conc. 30.8 g/dL (33.0-37.0); Mean Corpuscular Hgb 28.3 pg (27.0-31.0); Mean Corpuscular Volume 91.9 fL (80.0-94.0); Mean Platelet Volume 11.7 fL (7.4-10.4); Platelet Count 202 10^3/uL (130-400); Red Cell Dist. Width 14.6 % (11.5-14.5); White Blood Cell Count 21.2 10^3/uL (4.8-10.8)
[2024-05-24 07:00] VITALS: BP 116/64
--- NOTE | 2024-05-24 08:50 | W.PN.PUL3 ---
Today's Communication / Plan
-
Heparin drip with eventual transition to NOAC per hematology
Check echo
Check procalcitonin for trending power
Check left-sided chest ultrasound and if enough pleural fluid present then consult IR for thoracentesis
PO vancomycin
Trend WBC + fever curve --> if fevers persist and/or leukocytosis worsens then would start antibiotics for possible left-sided pneumonia
Maintain SpO2 >90-94% and wean down supplemental O2 as tolerated
If resting SpO2 <96% then check ambulatory pulse oximetry prior to discharge
Pulmonary service will continue to follow along
Assessment
-
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
pain and found to have low oxygen levels. Per EMS, oxygen levels were in the 80s on room air. In the ER he was afebrile to 97.5 �F, pulse rate 58, respiratory rate 18 breaths/min, BP 111/58 and saturating 92% on 4 L/min nasal cannula. Initial
labs showed Hb 11.8, creatinine 1.5, troponin 0.054, proBNP 1100, and COVID-19 antigen negative. CXR showed no acute cardiopulmonary process, and CTA chest showed bilateral pulmonary emboli with moderate clot burden and no evidence for RV strain.
Also a small left-sided pleural effusion with chronic elevation of the left hemidiaphragm. He was started on heparin and admitted to telemetry. Pulmonary service now consulted for additional management/recommendations per
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
Impression:
#Bilateral pulmonary embolism without RV strain involving left upper lobe + right lung (PESI score: 106, class IV: 4-11.4% 30 day mortality risk)
#Elevated troponin likely due to above in the setting of acute PE with demand ischemia/type II [place]
#Left lower lobe pleural effusion with adjacent consolidative opacification ---> DDx includes compressive atelectasis vs pneumonia
#Acute respiratory failure with hypoxia due to the above
#C. difficile colitis now on PO vancomycin
#Leukocytosis likely reactive due to above
#Chronic anemia (baseline Hb 12�13.5g/dL)
#CKD (baseline creatinine 1.2�1.3)
#Left hemidiaphragm elevation
#Chronic hypotension on midodrine
#BPH
#CAD
#A-fib on Xarelto
#Parkinson disease
#Dementia
#Chronic HF,rEF (LVEF: 50% via TTE from 01/2020)
Plan:
- Continue with systemic anticoagulation, currently on heparin drip
- Lower extremity duplex done on 05/23/2024 negative for DVT
- Check transthoracic echo
- Given that he remains hemodynamically stable without RV strain on CTA chest, no need for catheter directed thrombolysis or suction thrombectomy at this time
- Continue with amiodarone --> considering he is on outpatient, chronic amiodarone, he should obtain annual spirometry to trend FVC
- Considering that the patient takes Xarelto as an outpatient, this is concerning for failure while on NOAC, however he was off of anticoagulation for about 2 weeks due to persistent hematuria so this is likely the cause for his bilateral PE.
Hematology consulted for discussion on which anticoagulant to resume - favor eliquis to xarelto
- Troponin peaked at 0.091 on 05/23/2024; no need to continue trending at this point
- Maintain SpO2 >90-94% with supplemental O2 and wean down as tolerated --> if resting SpO2 is <96% then check ambulatory pulse oximetry prior to discharge
- Recommend outpatient PFTs
- Patient has a left-sided lower lobe pleural effusion with adjacent consolidation, differential including compressive atelectasis versus pneumonia. He does have a worsening WBC today. Of note, he is positive for C. difficile, and is now on PO
vancomycin which could explain the worsening leukocytosis; if patient remains febrile then would consider starting treatment for possible left lower lobe pneumonia; check left-sided chest ultrasound to assess if pleural effusion is large enough for
thoracentesis, and if so then consult IR for pleural tap
- Check procal for trending power
- Incentive spirometer encouraged q1hr while awake (currently lethargic so this will need to be on hold for now)
- Replete electrolytes with K>4, Mg>2
- Maintain euglycemia with goal BG >100 and <180
- prn nebulized bronchodilators � not currently bronchospastic
- DVT ppx - currently on heparin drip
Pulmonary service will continue to follow along.
Data:
CTA Chest 05/22/2024:
1. Positive for bilateral pulmonary thromboembolus with a moderate clot burden.
2. Small left pleural effusion.
3. Chronic elevation of the left hemidiaphragm and compressive atelectasis on the left lower lobe.
4. Additional chronic findings, as detailed above.
Bilateral lower extremity duplex ultrasound 05/23/2024: No sonographic evidence for lower extremity venous thrombosis.
Total time spent today was 38 minutes for this encounter. Time includes reviewing laboratory test/imaging results, reviewing pertinent medical records, obtaining and reviewing medical history, performing an appropriate exam, ordering medications,
tests and procedures. Time also includes documentation of this encounter, coordinating patient care and communicating with other healthcare professionals. Total time does not include separately billed tests performed on this date of service.
Subjective Data
-
Date of Service:
Date of Service: May 24, 2024
Chief Complaint: Pulmonary Follow Up and VTE Follow Up
Subjective:
Patient was seen and evaluated today at bedside. He is sleeping, arousable to voice and tactile stimulation but then quickly falls back asleep. Currently on 4 L/min nasal cannula and saturating 96%. Had a fever last night to 101.1 �F.
Review of Systems
General: Other (Unable to obtain given patient's altered mental/lethargic)
Objective Data
Data Reviewed
Vital Signs / I&O / Oxygen:
Vital Signs
Temp Pulse Resp BP Pulse Ox
99.6 F 74 16 116/64 94
05/24/24 07:00 05/24/24 07:00 05/24/24 07:00 05/24/24 07:00 05/24/24 07:00
Intake and Output
05/23/24 05/24/24 05/25/24
06:59 06:59 06:59
Intake Total 480 / 480
Balance 480 / 480
SaO2 94
Nasal Cannula flow liters per 4
minute
Physical Exam
General: Respiratory Distress (negative), Comfortable, Chills (negative) and Sweats (negative)
HEENT: Normocephalic and Anicteric
Cardiovascular: S1-S2, Murmur (MELINA heard across precordium, grade II/) and Peripheral Edema (negative)
Respiratory: Clear, Wheeze (negative), Crackles (negative), Rhonchi (negative), Non-Labored Respirations, Stridor (negative) and Other (Diminished breath sounds at left base)
GI: Soft, Non Distended, Non Tender and Normal Bowel Sounds
Neurology: Lethargic
Skin: Warm, Dry, Cyanosis (negative) and Jaundice (negative)
Labs/Micro/Reports
Lab Data
05/24/24 04:34
05/24/24 04:34
Laboratory Results
05/23/24 05/23/24 05/24/24
11:51 20:37 03:36
APTT 126.3 H 59.7 H 196.3 H*
Microbiology
05/24/24 05:02 Feces/Stool C. difficile GDH Antigen & Toxins - Final
Toxigenic C.difficile Positive
05/22/24 11:38 Nasal Swab Influenza Types A & B (CARLYLE) - Final
Negative for Influenza A & B, NAAT
Negative results must be combined with clinical observations
and patient history.
Nucleic Acid Amplification test (NAAT)performed on the
[employer] platform.
--- NOTE | 2024-05-24 08:58 | CON.ONC ---
Impression
Impression
Bilateral pulmonary embolus with moderate burden
Recent hospitalization for persistent hematuria off of anticoagulation for 12 days prior to this clinical event
Atrial fibrillation
Alzheimer's dementia
Elevated troponin likely due to above in the setting of acute PE with demand ischemia/type II MT
Left lower lobe pleural effusion with adjacent consolidative opacification
Acute respiratory failure with hypoxia due to the above
Leukocytosis likely reactive
Chronic anemia (baseline Hb 12�13.5g/dL)
CKD creatinine 1.5
Left hemidiaphragm elevation
Chronic hypotension on midodrine
A-fib off of Xarelto
Parkinson disease
Dementia
Plan
Plan
Not recently anticoagulated this is not a failure of DOAC
Monitor for hematuria if recurrent would favor IVC filter
Prefer Eliquis to Xarelto at 2.5 mg twice daily without loading given recent history of hematuria
Monitor CBC
Patient History
History of Present Illness
88-year-old male with a past medical history of chronic systolic heart failure, hypertension, Parkinson disease, dementia, A-fib on Xarelto (held since 05/09-hematuria), CAD, and chronic hypotension on midodrine who presents from his intermediate
with generalized pain and found to have low oxygen levels. Per EMS, oxygen levels were in the 80s on room air. CTA chest showed bilateral pulmonary emboli with moderate clot burden and no evidence for RV strain and small left-sided pleural
effusion with chronic elevation of the left hemidiaphragm. He was started on heparin and admitted to telemetry. Hematology service now consulted for additional management/recommendations given the difficulty with bleeding and thrombosis. No
reported repeat hematuria since last discharge. Patient unreliable historian due to dementia.
Past-Medical/Surgical History
PMHx: Chronic systolic heart failure, hypertension, Parkinson's disease, hyperlipidemia, A-fib on Xarelto, CAD, BPH, hematuria, dementia, orthostasis on midodrine
PSHx: Bilateral hip surgeries, bilateral knee surgeries, right nephrectomy (2006), partial TURP (2020), cystocele repair
Social History
Tobacco: Former Smoker
Alcohol: None
Drug: None
Family History
Family History: Diabetes (Mother)
Patient Medication
�Medication �Instructions �Recorded �Confirmed �Last Taken �Type
tamsulosin 0.4 mg capsule 0.4 mg PO DAILY Urinary issue 06/21/19 05/22/24 Unknown History
donepezil 23 mg tablet 23 mg PO QPM Neurological Condition 05/25/21 05/22/24 Unknown History
memantine 10 mg tablet 10 mg PO BID Neurological Condition 05/25/21 05/22/24 Unknown History
multivitamin with folic acid 400 1 tab PO DAILY Supplement 05/25/21 05/22/24 Unknown History
mcg tablet (Tab-A-Kyra)
loratadine 10 mg tablet 10 mg PO DAILY Allergies 11/20/22 05/22/24 Unknown History
midodrine 5 mg tablet 10 mg PO TID Blood Pressure 11/20/22 05/22/24 Unknown History
acetaminophen 325 mg tablet 650 mg PO Q4HPRN PRN MILD PAIN 05/09/24 05/22/24 Unknown History
(Tylenol)
amiodarone 200 mg tablet 200 mg PO BID Arrhythmia 05/09/24 05/22/24 Unknown History
benzonatate 100 mg capsule 100 mg PO TIDPRN PRN COUGH 05/09/24 05/22/24 Unknown History
dextromethorphan-guaifenesin 30 1 tab PO [id number] PRN COUGH 05/09/24 05/22/24 Unknown History
mg-600 mg tablet extended
hr (Mucinex DM)
guaifenesin 100 mg/5 mL oral liquid 100 mg PO Q6HPRN PRN COUGH 05/09/24 05/22/24 Unknown History
magnesium hydroxide 400 mg/5 mL 2,400 mg PO DAILYPRN PRN 05/09/24 05/22/24 Unknown History
oral suspension (Milk of Magnesia) CONSTIPATION
nystatin 100,000 unit/gram topical 1 applic topical TIDPRN PRN SACRAL 05/09/24 05/22/24 Unknown History
powder (Nystop) AREA
cefdinir 300 mg capsule 300 mg PO Q12 UTI 9 days #18 caps 05/14/24 05/22/24 Unknown Rx
folic acid 400 mcg tablet 0.4 mg PO DAILY Supplement 05/22/24 05/22/24 Unknown History
loperamide 2 mg tablet 2 mg PO Q4HPRN PRN diarrhea 05/22/24 05/22/24 Unknown History
lorazepam 0.5 mg tablet 0.5 mg PO BID Mental Health/Anxiety 05/22/24 05/22/24 Unknown History
potassium chloride 20 mEq 20 meq PO DAILY Electrolyte 05/22/24 05/22/24 Unknown History
tablet,extended release Repletion
rivaroxaban 20 mg tablet (Xarelto) 20 mg PO .HOLD Blood Clot 05/22/24 05/22/24 05/09/24 History
Prevention/Tx
Active Medications
Generic Name Dose Route Start Last Admin
Trade Name Freq PRN Reason Stop Dose Admin
Acetaminophen 650 mg 05/22/24 20:05 05/23/24 17:22
Acetaminophen 325 Mg Tablet PO 06/19/24 20:04 650 mg
Q4HPRN PRN Administration
MILD PAIN
Amiodarone HCl 200 mg 05/22/24 20:05 05/23/24 20:19
Amiodarone 200 Mg Tablet PO 06/19/24 20:04 200 mg
BID JEFFRY Administration
Bisacodyl 10 mg 05/22/24 20:05
Bisacodyl 10 Mg Rectal Suppository RECTAL 06/19/24 20:04
[id number] PRN
constipation
Cefdinir 300 mg 05/23/24 11:00 05/23/24 20:18
Cefdinir 300 Mg Capsule PO 300 mg
Q12 JEFFRY Administration
Donepezil HCl 10 mg 05/22/24 21:00 05/23/24 17:26
Donepezil Hcl 10 Mg Tablet PO 06/19/24 20:59 10 mg
QPM JEFFRY Administration
Guaifenesin 600 mg 05/22/24 21:00
Guaifenesin 600 Mg Extended Release Tablet PO 06/19/24 20:59
[id number] PRN
COUGH
Heparin Sodium 7,400 units 05/22/24 14:25 05/23/24 21:06
Heparin 80 Units/Kg Iv Rebolus IV 06/19/24 14:24 7,400 units
PRN PRN Administration
PTT < OR = 64 seconds
Heparin Sodium 3,700 units 05/22/24 14:25
Heparin 40 Units/Kg Iv Rebolus IV 06/19/24 14:24
PRN PRN
PTT = 64.1 to 72.9 seconds
Heparin Sodium 25,000 units in 250 mls @ 0 mls/hr 05/22/24 14:15 05/23/24 10:32
Heparin 59571 Units/250 Ml IV 250 mls
PER PROTOCOL JEFFRY Administration
Protocol
Per Protocol
Lorazepam 0.5 mg 05/22/24 20:05 05/23/24 20:18
Lorazepam 0.5 Mg Tablet PO 06/19/24 20:04 0.5 mg
BID JEFFRY Administration
Memantine 10 mg 05/22/24 20:05 05/23/24 20:18
Memantine 10 Mg Tablet PO 06/19/24 20:04 10 mg
BID JEFFRY Administration
Midodrine 10 mg 05/22/24 20:05 05/23/24 17:23
Midodrine 5 Mg Tablet PO 06/19/24 20:04 10 mg
TID @ 0800,1200,1700 JEFFRY Administration
Polyethylene Glycol 17 grams 05/22/24 20:05
Polyethylene Glycol Powder 17 Grams Packet PO 06/19/24 20:04
DAILYPRN PRN
constipation
Potassium Chloride 20 meq 05/23/24 08:00 05/23/24 10:21
Potassium Chloride 20 Meq Extended Release Tablet PO 06/20/24 07:59 20 meq
DAILY JEFFRY Administration
Senna/Docusate Sodium 1 tablet 05/22/24 20:05
Docusate W/Senna (Jennifer-Colace) Tablet PO 06/19/24 20:04
BIDPRN PRN
constipation
Sodium Chloride 0 flush 05/22/24 21:00
Sodium Chloride 0.9% (Flush) Syringe IV 06/19/24 20:59
PER PROTOCOL JEFFRY
Tamsulosin HCl 0.4 mg 05/23/24 08:00 05/23/24 10:21
Tamsulosin 0.4 Mg Capsule PO 06/20/24 07:59 0.4 mg
DAILY JEFFRY Administration
Review of Systems
-
Unobtainable due to dementia
Physical Exam
-
Physical Exam
HEENT: Normocephalic and Anicteric
Cardiovascular: S1/S2, irregular without murmur
Respiratory: decreased in the base no rales or rhonchi
GI: Soft, Non Distended, Non Tender and Normal Bowel Sounds
Neurology: Awake, nonfocal
Skin: Warm and Dry
Labs
Lab Results
WBC 21.2 10^3/uL (4.8-10.8) H 05/24/24 04:34
RBC 4.70 10^6/uL (4.70-6.10) 05/24/24 04:34
Hgb 13.3 g/dL (13.0-18.0) 05/24/24 04:34
Hct 43.2 % (39.0-52.0) 05/24/24 04:34
MCV 91.9 fL (80.0-94.0) 05/24/24 04:34
MCH 28.3 pg (27.0-31.0) 05/24/24 04:34
MCHC 30.8 g/dL (33.0-37.0) L 05/24/24 04:34
RDW 14.6 % (11.5-14.5) H 05/24/24 04:34
Plt Count 202 10^3/uL (130-400) D 05/24/24 04:34
MPV 11.7 fL (7.4-10.4) H 05/24/24 04:34
Abs Immat Gran (auto) 0.1 10^3/uL (0-0.05) H 05/22/24 11:29
Absolute Neuts (auto) 8.8 10^3/uL (1.4-6.5) H 05/22/24 11:29
Absolute Lymphs (auto) 0.8 10^3/uL (1.2-3.4) L 05/22/24 11:29
Absolute Monos (auto) 0.8 10^3/uL (0.1-0.6) H 05/22/24 11:29
Absolute Eos (auto) 0.2 10^3/uL (0-0.7) 05/22/24 11:29
Absolute Basos (auto) 0.0 10^3/uL (0-0.2) 05/22/24 11:29
Immature Gran % 0.5 % (0-0.5) 05/22/24 11:29
Neutrophils % 82.3 % (42.2-75.2) H 05/22/24 11:29
Lymphocytes % 7.8 % (20.5-51.1) L 05/22/24 11:29
Monocytes % 7.3 % (1.7-9.3) 05/22/24 11:29
Eosinophils % 1.8 % (0-6) 05/22/24 11:29
Basophils % 0.3 % (0-2) 05/22/24 11:29
Creatinine 1.5 mg/dL (0.7-1.3) H 05/24/24 04:34
Vital Signs
Vital Signs
Temp Pulse Resp BP Pulse Ox
99.6 F 74 16 116/64 94
05/24/24 07:00 05/24/24 07:00 05/24/24 07:00 05/24/24 07:00 05/24/24 07:00
[2024-05-24] MEDS: OMNICEF 300 MG PO (10:10)
[2024-05-24] MEDS: FLOMAX 0.4 MG PO (10:11)
[2024-05-24] MEDS: ATIVAN 0.5 MG PO (10:11)
[2024-05-24] MEDS: KCL 20 MEQ PO (10:11)
[2024-05-24] MEDS: ProAmatine 10 MG PO ×2 (10:11→13:03)
[2024-05-24] MEDS: NAMENDA 10 MG PO ×2 (10:12→20:38)
[2024-05-24] MEDS: HEPARIN 25000 UNITS/250 ML IV (10:13)
[2024-05-24] MEDS: PACERONE 200 MG PO ×2 (10:16→20:38)
--- NOTE | 2024-05-24 11:07 | W.PN.HOSP.TC ---
Today's Communication/Plan
-
Started p.o. vancomycin
Start on IV fluids
Continue with IV heparin
Follow PT/OT
Assessment / Plan
Assessment / Plan
Bilateral PE with moderate clot burden
- BP stable
- Is not tachycardic. Saturating okay on 2 L.
- Recently had thinners d/c due to hematuria
- cw Heparin gtt which i would continue for another 24 hours atleast prior initiating oral antibiotic. Hematology today recommends Eliquis and Xarelto.
- O2 supplement to titrate to keep POx > 93
- ECHO pending
- US legs neg for DVT
-Pulmonary and rheumatology input noted.
Elevated TPNI with abn EKG
HX due to dementia
Denies CP
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
- Trend TPNI
- await ECHO
- Card consulted
At risk for recurent hematuria due to necessary heparin gtt for acute PE
HX renal cell carcinoma s/p nephrectomy
HX recent with Proteus mirabilis
- Recent CT A/P showed 3 left-sided ureteral calculi with mild distention of mid to distal ureter
- c/w CABINET MOUNTER Cefdinir to complete total 14 days -done
Diarrhea with C diff positivity
Recent abx use noted
WBC going up
Start on PO vanco
Poor oral intake -start on IV fluids
If persistent abdo discomfort after retention resolved will consider CT A/P
HX Paroxysmal AF
-Nonvalvular; home medications include amiodarone
- Holding Xarelto
- No known history of electrophysiologic interventions
Alzheimer dementia
HX Mild chronic dysphagia
-Avoid benzodiazepines, continue with memantine at donepezil
-Continue with nectar thick liquid consistency
- Decrease lorazepam dose due to sleepiness
Chronic HFpEF: stable
Chr hypotensive
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
- Not currently on GDMT or standing diuretic therapy
- Is chronically on midodrine 10 mg 3 times daily
-Appears euvolemic
Nonessential tremors
- Unclear etiology, likely associated with Parkinson's history
DVT prophylaxis: Heparin gtt for acute PE
Diet: Cholesterol-lowering, honey thick liquids
CODE STATUS: DNR
IP TLM
DW RN
DW daughter
DW Heme today
Total time spent on today's encounter was 52 minutes which included time spent in counseling the patient/family regarding diagnosis and treatment plan as listed above, goals of care, and symptom management. Case was discussed with nursing staff,
specialists, and care coordinators/case management. All labs and imaging personally reviewed by me. Remainder the time spent in detailed review of previous records, lab data, imaging, and other medical provider documentation.
Anticipated Discharge: > 48 hours
Subjective/Interval History
-
Date of Service: May 24, 2024
Sleepy when i visited him but arousable.
He says he knows he is in hosptial. Couldnt name it.
Oriented to self and person.
Seems weak with his voice. Mouth dry.
Had 5 loose stools last night.
Objective Data
-
Labs:
Laboratory Results
05/24/24 05/24/24 05/24/24
03:36 04:34 11:05
WBC 21.2 H
Hgb 13.3
Hct 43.2
Plt Count 202 D
APTT 196.3 H* Pending
Sodium 149 H
Potassium 4.0
Chloride 113 H
Carbon Dioxide 28
BUN 37 H
Creatinine 1.5 H
Glucose 116 H
Calcium 8.4
Vital Signs:
Vital Signs
Temp Pulse Resp BP Pulse Ox
99.6 F 74 16 116/64 94
05/24/24 07:00 05/24/24 10:16 05/24/24 07:00 05/24/24 10:16 05/24/24 07:00
I&O
05/23/24 05/24/24 05/25/24
06:59 06:59 06:59
Intake Total 480 / 480
Balance 480 / 480
Review of Systems
-
Unable to obtain full review of systems at this time due to: Other (sec to weakness and baseline cognitive impairment)
Physical Exam
-
General: No Apparent Distress
Respiratory: Clear to Auscultation (anteriorly) and Non Labored Respirations; Negative Accessory Resp Muscle Use
Cardiac: Regular Rhythm and S1/S2; Negative Tachycardic
GI: Soft, Nondistended, Normal Bowel Sounds and Tender (? in left side and suprapubic area but no rebound or guarding)
Neuro: Awake (sleepy but arousable) and Oriented (self and person)
Psych: Calm
Data Reviewed
-
Labs: Labs Reviewed by me
[2024-05-24 11:25] VITALS: BP 108/64
[2024-05-24 12:13] LABS: APTT 90.2 Sec (23.4-35.0)
[2024-05-24] MEDS: NSS 1000 IV ×2 (13:01→23:21)
[2024-05-24] MEDS: FIRVANQ 250 MG PO ×3 (13:03→23:21)
[2024-05-24 15:35] VITALS: BP 102/57
[2024-05-24 17:48] LABS: APTT 107.5 Sec (23.4-35.0)
[2024-05-24] MEDS: ProAmatine PO (17:52)
[2024-05-24] MEDS: ARICEPT 10 MG PO (17:56)
[2024-05-24] MEDS: TYLENOL 650 MG PO (20:46)
[2024-05-24] MEDS: DESENEX/MITRAZOL/ZEASORB 1 APPLIC TOPICAL (20:48)
[2024-05-24 22:46] VITALS: BP 90/54
[2024-05-25] VITALS (7 sets, daily range): BP systolic 90–138; BP diastolic 53–83; PULSE 60; O2SAT 99; BMI 25.2
[2024-05-25] MEDS: FIRVANQ 250 MG PO ×4 (05:31→23:11)
[2024-05-25 07:03] LABS: Hematocrit 38.8 % (39.0-52.0); Hemoglobin 12.3 g/dL (13.0-18.0); Mean Corp Hgb Conc. 31.7 g/dL (33.0-37.0); Mean Corpuscular Hgb 29.1 pg (27.0-31.0); Mean Corpuscular Volume 91.9 fL (80.0-94.0); Mean Platelet Volume 11.7 fL (7.4-10.4); Platelet Count 175 10^3/uL (130-400); Red Blood Cell Count 4.22 10^6/uL (4.70-6.10); White Blood Cell Count 13.9 10^3/uL (4.8-10.8)
[2024-05-25] MEDS: HEPARIN 25000 UNITS/250 ML IV (07:26)
[2024-05-25 07:49] LABS: APTT 93.9 Sec (23.4-35.0); Procalcitonin 0.31 ng/ml (0.0-0.25)
[2024-05-25 07:55] LABS: Blood Urea Nitrogen 45 mg/dl (9-20); Carbon Dioxide 26 mmol/L (22-30); Chloride 117 mmol/L (98-107); Estimated Creatinine Clearance 31 ml/min; Glucose 101 mg/dl (70-99); Potassium 3.9 mmol/L (3.5-5.1); Sodium 150 mmol/L (135-145)
[2024-05-25] MEDS: FLOMAX 0.4 MG PO (08:27)
[2024-05-25] MEDS: KCL 20 MEQ PO (08:27)
[2024-05-25] MEDS: PACERONE 200 MG PO ×2 (08:28→20:47)
[2024-05-25] MEDS: ProAmatine 10 MG PO ×3 (08:28→17:29)
[2024-05-25] MEDS: NAMENDA 10 MG PO ×2 (08:28→20:47)
[2024-05-25] MEDS: DESENEX/MITRAZOL/ZEASORB 1 APPLIC TOPICAL ×2 (08:29→20:47)
--- NOTE | 2024-05-25 08:50 | W.PN.ONC ---
Today's Communication / Plan
-
Not recently anticoagulated this is not a failure of DOAC
Continue heparin drip
Monitor for hematuria if recurrent would favor IVC filter
Prefer eventual transition to Eliquis 2.5 mg twice daily without loading given recent history of hematuria
Monitor CBC
Vanco for C.diff diarrhea
Impression
Impression
Bilateral pulmonary embolus with moderate burden
C diff+
Recent hospitalization for persistent hematuria off of anticoagulation for 12 days prior to this clinical event
Atrial fibrillation
Alzheimer's dementia
Elevated troponin likely due to above in the setting of acute PE with demand ischemia/type II PA
Left lower lobe pleural effusion with adjacent consolidative opacification
Acute respiratory failure with hypoxia due to the above
Leukocytosis likely reactive
Chronic anemia (baseline Hb 12�13.5g/dL)
CKD creatinine 1.5
Left hemidiaphragm elevation
Chronic hypotension on midodrine
A-fib off of Xarelto
Parkinson disease
Dementia
Plan
Plan
Not recently anticoagulated this is not a failure of DOAC
Continue heparin drip
Monitor for hematuria if recurrent would favor IVC filter
Prefer eventual transition to Eliquis 2.5 mg twice daily without loading given recent history of hematuria
Monitor CBC
Vanco for C.diff diarrhea
Subjective/Objective
Subjective/Objective
eating breakfast w/ assistance
not oriented
no obvious bleeding
Vital Signs:
Vital Signs
Temp Pulse Resp BP Pulse Ox
97.5 F 79 17 118/83 96
05/25/24 07:10 05/25/24 08:28 05/25/24 07:10 05/25/24 08:28 05/25/24 07:10
Lab Results:
Laboratory Data
WBC 13.9 10^3/uL (4.8-10.8) H 05/25/24 06:49
Hgb 12.3 g/dL (13.0-18.0) L 05/25/24 06:49
Plt Count 175 10^3/uL (130-400) 05/25/24 06:49
PT 15.7 Sec (11.4-14.6) H 05/23/24 06:15
INR 1.22 05/23/24 06:15
APTT 93.9 Sec (23.4-35.0) H 05/25/24 06:49
eGFR 31.90 05/25/24 06:49
--- NOTE | 2024-05-25 11:07 | W.PN.HOSP.TC ---
Today's Communication/Plan
-
Changed her fluids to D5 and increase the rate. Follow creatinine closely.
Continue with IV heparin.
Check echocardiogram.
PT OT eval
Assessment / Plan
Assessment / Plan
Bilateral PE with moderate clot burden
- BP stable
- Is not tachycardic. Saturating okay on 2 L.
- Recently had thinners d/c due to hematuria
- cw Heparin gtt-continue for another 24 hours prior initiating oral anticoagulant. Hematology today recommends Eliquis over Xarelto.
- O2 supplement to titrate to keep POx > 93
- ECHO pending
- US legs neg for DVT
-Pulmonary and rheumatology input noted.
Elevated TPNI with abn EKG
HX due to dementia
Denies CP
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
- Trend TPNI
- await ECHO
- Card was consulted and has not seen. Will hold the consult due to suspicion of nonischemic cardial injury possibly from PE. Echo from today pending.
At risk for recurent hematuria due to necessary heparin gtt for acute PE
HX renal cell carcinoma s/p nephrectomy
HX recent with Proteus mirabilis
- Recent CT A/P showed 3 left-sided ureteral calculi with mild distention of mid to distal ureter
- c/w EVENT ATTENDANT Cefdinir to complete total 14 days -done
Acute kidney injury on chronic kidney disease stage III
Creatinine admission was 1.5 which was the same as recent discharge from last week.
Creatinine bump up possibly secondary to volume with the diarrhea and C. difficile. Rise in sodium noted again indicating volume depletion
Change IV fluids to D5 half-normal and increase the rate and follow creatinine closely. Recent CT of the abdomen pelvis showed -In the mid left ureter, there is a 1.8 mm calculus. No hydroureteronephrosis. There is a 1 mm calculus in the mid to
distal left ureter adjacent to the external iliac vessels. There is a 2 mm calculus in the distal ureter. Mild distention of the mid and distal ureter.
If no improvement in creatinine repeat the CT of the abdomen pelvis stone protocol.
Bladder scan shows urine of 202ml. Continue to follow.
Diarrhea with C diff positivity
Recent abx use noted
WBC improving. Decreasing diarrhea.
Continue on PO vanco
Continue on IV fluids
Abdomen soft without tenderness today
HX Paroxysmal AF
-Nonvalvular; home medications include amiodarone
- Holding Xarelto
- No known history of electrophysiologic interventions
Alzheimer dementia
HX Mild chronic dysphagia
-Avoid benzodiazepines, continue with memantine at donepezil
-Continue with nectar thick liquid consistency
- Decrease lorazepam dose due to sleepiness
Chronic HFpEF: stable
Chr hypotensive
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
- Not currently on GDMT or standing diuretic therapy
- Is chronically on midodrine 10 mg 3 times daily
-Appears hypovolemic based on the current clinical parameters
Nonessential tremors
- Unclear etiology, likely associated with Parkinson's history
DVT prophylaxis: Heparin gtt for acute PE
Diet: Cholesterol-lowering, honey thick liquids
CODE STATUS: DNR
IP TLM
DW RN
Total time spent on today's encounter was 52 minutes which included time spent in counseling the patient/family regarding diagnosis and treatment plan as listed above, goals of care, and symptom management. Case was discussed with nursing staff,
specialists, and care coordinators/case management. All labs and imaging personally reviewed by me. Remainder the time spent in detailed review of previous records, lab data, imaging, and other medical provider documentation.
Anticipated Discharge: > 48 hours
Subjective/Interval History
-
Date of Service: May 25, 2024
Patient is bit more awake and interactive today. He did not know he was in the hospital. I reoriented him.
According to RN he did well today with his breakfast, ate all of it.
Apparently no issues with retention of urine, passing urine freely.
Patient denies any nausea or abdominal pain.
Denies any shortness of breath or chest pain.
He had 1 small bowel movement today so far.
Objective Data
-
Labs:
Laboratory Results
05/25/24
06:49
WBC 13.9 H
Hgb 12.3 L
Hct 38.8 L
Plt Count 175
APTT 93.9 H
Sodium 150 H
Potassium 3.9
Chloride 117 H
Carbon Dioxide 26
BUN 45 H
Creatinine 2.0 H
Glucose 101 H
Calcium 8.0 L
Vital Signs:
Vital Signs
Temp Pulse Resp BP Pulse Ox
97.5 F 79 17 118/83 96
05/25/24 07:10 05/25/24 08:28 05/25/24 07:10 05/25/24 08:28 05/25/24 07:10
I&O
05/24/24 05/25/24 05/26/24
06:59 06:59 06:59
Intake Total 480 / 480 1184 / 1184
Balance 480 / 480 1184 / 1184
Review of Systems
-
Unable to obtain full review of systems at this time due to: Other (Cognitive impairment)
Physical Exam
-
General: No Apparent Distress
HEENT: Moist Mucous Membranes
Respiratory: Clear to Auscultation (Anteriorly. Requiring 2 L of oxygen via nasal cannula) and Non Labored Respirations; Negative Accessory Resp Muscle Use
Cardiac: Regular Rhythm and S1/S2; Negative Tachycardic
GI: Soft, Nontender, Nondistended and Normal Bowel Sounds
Neuro: Awake, Alert and Oriented (Self)
Psych: Calm and Confused; Negative Agitated
Data Reviewed
-
Labs: Labs Reviewed by me
--- NOTE | 2024-05-25 11:12 | PTCARENOTE ---
Upon walking rounds MD asked this RN to bladder scan pt, pt incontinent this AM of moderate amount of yellow urine. Bladder scanned for 202, MD made aware. No new orders at this time.
[2024-05-25] MEDS: D5/0.45%NSS with KCL 10 MEQ 1000 IV ×2 (11:51→19:24)
--- NOTE | 2024-05-25 12:40 | PN.CDI ---
CDI
- -
CDI:
Physician Documentation Request
Admit Date: 05/22/24 15:12
Dear Doctor Lloyd,
Clinical Indicators:
Patient admitted bilateral pulmonary embolism.
IVF D5 /2 NSS ordered.
Sodium trend:
05/24/24 05/25/24
04:34 06:49
Sodium 149 H 150 H
Based on the above, could you clarify in the progress notes, the appropriate diagnosis, if significant, that supports the above abnormalities and additional evaluation, monitoring and/or treatment rendered:
Hypernatremia
Abnormal lab values, clinically insignificant
Other
Use of terms such as suspected, likely, concern for, or probable (associated with a specific diagnosis that is being evaluated, monitored, or treated as if it exists) are acceptable and can be coded in the inpatient setting, when documented at the
time of discharge.
Thank you,
Aylin Martines RN BSN
CDI Specialist
available via tiger text
Please use your independent medical judgment in providing your response.
--- NOTE | 2024-05-25 12:46 | PN.CDI ---
CDI
- -
CDI:
Physician Documentation Request
Admit Date: 05/22/24 15:12
Dear Doctor Lloyd,
Clinical Indicators:
Patient admitted bilateral pulmonary embolism.
05/22 -05/25 RN skin/wound assessments: Bilateral Buttocks Stage 2 Pressure Injury, POA
Physician documentation of the type and location of wounds is required for compliant documentation. Based on the above clinical findings and your assessment, please provide the following in your progress note:
1. Location of the ulcer/wound, including laterality.
2. Type (etiology) of ulcer/wound:
- Pressure (decubitus) ulcer
- Other
3. If a pressure ulcer, please also include the stage* of the ulcer:
- Stage 1 - Skin intact, non-blanchable redness
- Stage 2 - Partial thickness loss of dermis, includes intact or open blister
- Stage 3 - Full thickness tissue not including bone, tendon or muscle
- Stage 4 - Full thickness tissue loss, including exposed bone, tendon or muscle
- Unstageable - Full thickness loss in which the base of the ulcer is covered by slough (yellow, aldana, horn, green or brown) and/or eschar (aldana, brown or black) in the wound bed.
- Unable to determine
Use of terms such as suspected, likely, concern for, or probable (associated with a specific diagnosis that is being evaluated, monitored, or treated as if it exists) are acceptable and can be coded in the inpatient setting, when documented at the
time of discharge.
Thank you,
Aylin Martines, [employer]
CDI Specialist
available via tiger text
Please use your independent medical judgment in providing your response.
*Source: National Pressure Ulcer Advisory Panel (NPUAP)
--- NOTE | 2024-05-25 13:36 | WOUNDNOTE ---
WO RN note: Patient admitted with acute PE, hematuria, UTI, loose stools, C diff. Patient admitted from SNF.
See H&P for complete history.
PMH: dementia, discharged from 05/14/24 for hematuria/UTI, CAD, COPD, HTN, Parkinson's, bilateral knee replacemet, R hip arthroplasty, former smoker.
Wound Location and type/assessment: Patient admitted with: sacral/coccyx/buttocks large area of stage 2 pressure injuries with coccyx and R coccyx/buttocks purple colored fragile skin suspect stage 2 more so than DTI. Jennifer/groin MASD. Heels
blanchable mild red and intact.
Appetite: fair-good.
Pressure redistribution devices in place: [employer] Accumax. TAMIA Torres agreeable with applying Waffle air overlay mattress.
Plan: Patient incontinent of moderate clear yellow colored mucous, jennifer care given. Air overlay mattress applied and patient turned to L semi side lying position with help from TAMIA Beck and RUKHSANA Elizabeth. Heels off bed with pillow.
Will confirm orders with Dr. Desai and updated TAMIA Torres.
Care plan to be updated and will follow as needed.
Note to case management of equipment requested for discharge: Air mattress if not already in place.
Recommend follow up at wound care center upon discharge.
--- NOTE | 2024-05-25 14:37 | W.PN.PUL3 ---
Today's Communication / Plan
-
[facility] additional [facility]hr [facility] hemat[facility]
IS encouraged
ECHO is pending, will follow.
Home oxygen assessment prior dc
Will follow
Assessment
-
Assessment: 88-year-old male with a past medical history of chronic systolic heart failure, hypertension, Parkinson disease, dementia, A-fib on Xarelto, CAD, and chronic hypotension on midodrine who presents from his retirement with generalized
pain and found to have low oxygen levels. Per EMS, oxygen levels were in the 80s on room air. In the ER he was afebrile to 97.5 �F, pulse rate 58, respiratory rate 18 breaths/min, BP 111/58 and saturating 92% on 4 L/min nasal cannula. Initial
labs showed Hb 11.8, creatinine 1.5, troponin 0.054, proBNP 1100, and COVID-19 antigen negative. CXR showed no acute cardiopulmonary process, and CTA chest showed bilateral pulmonary emboli with moderate clot burden and no evidence for RV strain.
Also a small left-sided pleural effusion with chronic elevation of the left hemidiaphragm. He was started on heparin and admitted to telemetry. Pulmonary service now consulted for additional management/recommendations per
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
Impression:
#Bilateral pulmonary embolism without RV strain involving left upper lobe + right lung (PESI score: 106, class IV: 4-11.4% 30 day mortality risk)
#Elevated troponin likely due to above in the setting of acute PE with demand ischemia/type II CO
#Left lower lobe pleural effusion with adjacent consolidative opacification ---> DDx includes compressive atelectasis vs pneumonia
#Acute respiratory failure with hypoxia due to the above
#C. difficile colitis now on PO vancomycin
#Leukocytosis likely reactive due to above
#Chronic anemia (baseline Hb 12�13.5g/dL)
#CKD (baseline creatinine 1.2�1.3)
#Left hemidiaphragm elevation
#Chronic hypotension on midodrine
#BPH
#CAD
#A-fib on Xarelto
#Parkinson disease
#Dementia
#Chronic HF,rEF (LVEF: 50% via TTE from 01/2020)
Plan:
- Continue with systemic anticoagulation, currently on heparin drip
- Lower extremity duplex done on 05/23/2024 negative for DVT
- Check transthoracic echo- Pending.
- Stable hemodynamically, not tachycardia and on 2 L NC
- Continue with amiodarone --> considering he is on outpatient, chronic amiodarone, he should obtain annual spirometry to trend FVC
- Considering that the patient takes Xarelto as an outpatient, this is concerning for failure while on NOAC, however he was off of anticoagulation for about 2 weeks due to persistent hematuria so this is likely the cause for his bilateral PE.
Hematology consulted for discussion on which anticoagulant to resume - favor eliquis to xarelto , ok to transition in 24 hr if no hematuria.
- Maintain SpO2 >90-94% with supplemental O2 and wean down as tolerated --> if resting SpO2 is <96% then check ambulatory pulse oximetry prior to discharge, currently saturating well on 2L NC.
- Recommend outpatient PFTs
- Patient has a left-sided lower lobe pleural effusion with adjacent consolidation, differential including compressive atelectasis versus pneumonia.
Of note, he is positive for C. difficile, and is now on PO vancomycin which could explain the worsening leukocytosis; if patient remains febrile then would consider starting treatment for possible left lower lobe pneumonia;
US with small left pleural effusion.
Doubt Pneumonia.
- Incentive spirometer encouraged q1hr while awake (currently lethargic so this will need to be on hold for now)
- DVT ppx - currently on heparin drip
Pulmonary service will continue to follow along.
Data:
CTA Chest 05/22/2024:
1. Positive for bilateral pulmonary thromboembolus with a moderate clot burden.
2. Small left pleural effusion.
3. Chronic elevation of the left hemidiaphragm and compressive atelectasis on the left lower lobe.
4. Additional chronic findings, as detailed above.
Bilateral lower extremity duplex ultrasound 05/23/2024: No sonographic evidence for lower extremity venous thrombosis.
Subjective Data
-
Date of Service:
Date of Service: May 25, 2024
Chief Complaint: Pulmonary Follow Up and VTE Follow Up
Subjective:
Denies pulmonary complaints.
Tolerating Heparin gtt so far
Review of Systems
Cardiopulmonary: Dyspnea (none at rest.)
GI: Abdominal Pain (n) and Nausea (n)
Objective Data
Data Reviewed
Vital Signs / I&O / Oxygen:
Vital Signs
Temp Pulse Resp BP Pulse Ox
97.2 F 64 17 110/53 98
05/25/24 11:17 05/25/24 12:23 05/25/24 11:17 05/25/24 12:23 05/25/24 11:41
Intake and Output
05/24/24 05/25/24 05/26/24
06:59 06:59 06:59
Intake Total 480 / 480 1184 / 1184
Balance 480 / 480 1184 / 1184
SaO2 98
Nasal Cannula flow liters per 4
minute
Physical Exam
General: Respiratory Distress (negative), Comfortable, Chills (negative) and Sweats (negative)
HEENT: Normocephalic and Anicteric
Cardiovascular: S1-S2, Murmur (MELINA heard across precordium, grade II/) and Peripheral Edema (negative)
Respiratory: Clear, Wheeze (negative), Crackles (negative), Rhonchi (negative), Non-Labored Respirations, Stridor (negative) and Other (Diminished breath sounds at left base)
GI: Soft, Non Distended, Non Tender and Normal Bowel Sounds
Neurology: Lethargic
Skin: Warm, Dry, Cyanosis (negative) and Jaundice (negative)
Labs/Micro/Reports
Lab Data
05/25/24 06:49
05/25/24 06:49
Laboratory Results
05/24/24 05/25/24
17:19 06:49
APTT 107.5 H 93.9 H
Microbiology
05/24/24 05:02 Feces/Stool Salmonella/Shigella Culture - Preliminary
Culture in Progress
05/24/24 05:02 Feces/Stool Campylobacter Culture - Preliminary
Culture in Progress
05/24/24 05:02 Feces/Stool Shiga Toxin Test - Final
No E. coli Shiga Toxin 1 or 2 detected.
05/24/24 05:02 Feces/Stool Stool Leukocytes - Final
05/24/24 05:02 Feces/Stool C. difficile GDH Antigen & Toxins - Final
Toxigenic C.difficile Positive
05/24/24 05:02 Feces/Stool - Final
Negative for Norovirus GI and GII.
05/22/24 11:38 Nasal Swab Influenza Types A & B (CARLYLE) - Final
Negative for Influenza A & B, NAAT
Negative results must be combined with clinical observations
and patient history.
Nucleic Acid Amplification test (NAAT)performed on the
[employer] platform.
--- NOTE | 2024-05-25 14:57 | CM ---
Patient is a resident of [facility] in [place]
Await PT/OT evals
Spoke with Sharon SULLIVAN from [facility] & updated.
Called daughter Johnna.
PLAN: Await PT/OT eval
[2024-05-25] MEDS: ARICEPT 10 MG PO (17:29)
[2024-05-26 03:00] VITALS: BP 111/56
[2024-05-26] MEDS: HEPARIN 25000 UNITS/250 ML IV (03:15)
[2024-05-26] MEDS: D5/0.45%NSS with KCL 10 MEQ 1000 IV ×2 (03:18→18:37)
--- NOTE | 2024-05-26 04:49 | W.PN.UPDATE ---
Update Note
Progress Note Update
05/24/24 late entry
RN reported patient with loose stools x3. patient has mild fever and mild abdomen pain. Hx of recent antibiotic Cefdinir per Home med list. will do stool studies to r/o C-diff, [place] Virus. Stable vitals.
[2024-05-26] MEDS: FIRVANQ 250 MG PO ×3 (05:30→17:40)
[2024-05-26 05:40] VITALS: BMI 24.6
[2024-05-26 07:00] VITALS: BP 97/46
[2024-05-26 07:37] LABS: Hematocrit 38.1 % (39.0-52.0); Hemoglobin 11.9 g/dL (13.0-18.0); Mean Corp Hgb Conc. 31.2 g/dL (33.0-37.0); Mean Corpuscular Hgb 29.1 pg (27.0-31.0); Mean Corpuscular Volume 93.2 fL (80.0-94.0); Mean Platelet Volume 11.5 fL (7.4-10.4); Platelet Count 175 10^3/uL (130-400); Red Blood Cell Count 4.09 10^6/uL (4.70-6.10); White Blood Cell Count 8.1 10^3/uL (4.8-10.8)
[2024-05-26 07:53] LABS: APTT 113.8 Sec (23.4-35.0)
[2024-05-26 08:05] LABS: Blood Urea Nitrogen 35 mg/dl (9-20); Carbon Dioxide 27 mmol/L (22-30); Chloride 117 mmol/L (98-107); Estimated Creatinine Clearance 39 ml/min; Glucose 97 mg/dl (70-99); Potassium 3.9 mmol/L (3.5-5.1); Sodium 149 mmol/L (135-145)
--- NOTE | 2024-05-26 09:32 | W.PN.HOSP.TC ---
Today's Communication/Plan
-
Transition to oral Eliquis
Decrease IV fluids
Follow BMP in a.m.
Encourage out of bed and continue with PT treatments.
Assessment / Plan
Assessment / Plan
Bilateral PE with moderate clot burden
- BP stable
- Is not tachycardic. Saturating okay on 2 L. Check pulse ox on room air.
- Recently had thinners d/c due to hematuria-no evidence of hematuria now
- cw Heparin gtt-continue for another 24 hours prior initiating oral anticoagulant. Hematology today recommends Eliquis over Xarelto. Transition to Eliquis today-recommended dose was 2.5 mg twice daily.
- O2 supplement to titrate to keep POx > 93
- ECHO with higher pulmonary pressures than before but no RV dysfunction.
- US legs neg for DVT
-Pulmonary and hematology input noted.
Elevated TPNI with abn EKG
HX due to dementia
Denies CP
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
- Trend TPNI
- ECHO noted
- Card was consulted and has not seen. Will hold the consult due to suspicion of nonischemic cardial injury possibly from PE. Echo from today pending.
At risk for recurent hematuria due to necessary heparin gtt for acute PE
HX renal cell carcinoma s/p nephrectomy
HX recent with Proteus mirabilis
- Recent CT A/P showed 3 left-sided ureteral calculi with mild distention of mid to distal ureter
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
Acute kidney injury on chronic kidney disease stage III
Creatinine admission was 1.5 which was the same as recent discharge from last week.
Creatinine bump up possibly secondary to volume with the diarrhea and C. difficile. Rise in sodium noted again indicating volume depletion
Changed IV fluids to D5 half-normal and increase the rate and follow creatinine closely. Recent CT of the abdomen pelvis showed -In the mid left ureter, there is a 1.8 mm calculus. No hydroureteronephrosis. There is a 1 mm calculus in the mid to
distal left ureter adjacent to the external iliac vessels. There is a 2 mm calculus in the distal ureter. Mild distention of the mid and distal ureter.
Creatinine improved back to his baseline. Oral intake improved. .
Bladder scan shows urine of 202ml yesterday and pt was urinating ok per RN yesterday. Continue to follow.
Decrease fluids and follow oral intake
Hypernatremia secondary to volume deficit-improving
Diarrhea with C diff positivity
Recent abx use noted
WBC normalized. Decreasing diarrhea.
Continue on PO vanco
Abdomen soft without tenderness today
HX Paroxysmal AF
-Nonvalvular; home medications include amiodarone
- Holding Xarelto
- No known history of electrophysiologic interventions
Alzheimer dementia
HX Mild chronic dysphagia
-Avoid benzodiazepines, continue with memantine at donepezil
-Continue with nectar thick liquid consistency
- Decrease lorazepam dose due to sleepiness
- No agitation
Chronic HFpEF: stable
Chr hypotensive
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
- Not currently on GDMT or standing diuretic therapy
- Is chronically on midodrine 10 mg 3 times daily
-Appears hypovolemic based on the current clinical parameters
Nonessential tremors
- Unclear etiology, likely associated with Parkinson's history
DVT prophylaxis: Heparin gtt for acute PE
Diet: Cholesterol-lowering, honey thick liquids
CODE STATUS: DNR
IP TLM
DW RN
DW daughter via TT
Anticipated Discharge: 24 - 48 hours
Subjective/Interval History
-
Date of Service: May 26, 2024
More awake and interactive. Confused but not agitated.
Objective Data
-
Labs:
Laboratory Results
05/26/24 05/26/24
06:40 14:00
WBC 8.1
Hgb 11.9 L
Hct 38.1 L
Plt Count 175
APTT 113.8 H Pending
Sodium 149 H
Potassium 3.9
Chloride 117 H
Carbon Dioxide 27
BUN 35 H
Creatinine 1.6 H
Glucose 97
Calcium 8.0 L
Vital Signs:
Vital Signs
Temp Pulse Resp BP Pulse Ox
97.0 F 41 16 97/46 98
05/26/24 07:00 05/26/24 07:00 05/26/24 07:00 05/26/24 07:00 05/26/24 07:00
I&O
05/25/24 05/26/24 05/27/24
06:59 06:59 06:59
Intake Total 1184 / 1184 1512 / 1512
Balance 1184 / 1184 1512 / 1512
Review of Systems
-
Unable to obtain full review of systems at this time due to: Dementia
Constitutional: Denies Fever
EENT: Denies Sore Throat
Respiratory: Denies Cough or Trouble Breathing
Cardiac: Denies Chest Pain
Abdomen/GI: Denies Abdominal Pain, Nausea or Vomiting
Neuro: Denies Dizzy or Headache
Physical Exam
-
General: Comfortable
Respiratory: Clear to Auscultation (anteriorly) and Non Labored Respirations; Negative Accessory Resp Muscle Use
Cardiac: Regular Rhythm and S1/S2; Negative Tachycardic
GI: Soft, Nontender, Nondistended and Normal Bowel Sounds
Neuro: Awake, Alert and Oriented (self only)
Psych: Calm and Confused; Negative Agitated
Data Reviewed
-
Labs: Labs Reviewed by me
--- NOTE | 2024-05-26 10:45 | W.PN.ONC2 ---
Today's Communication / Plan
-
Not recently anticoagulated this is not a failure of DOAC
Monitor for hematuria if recurrent would favor IVC filter
transitioned from heparin gtt to Eliquis 2.5 mg twice daily without loading given recent history of hematuria
Monitor CBC
Vanco for C.diff diarrhea
Impression
Impression
Bilateral pulmonary embolus with moderate burden
C diff+
Recent hospitalization for persistent hematuria off of anticoagulation for 12 days prior to this clinical event
Atrial fibrillation
Alzheimer's dementia
Elevated troponin likely due to above in the setting of acute PE with demand ischemia/type II PR
Left lower lobe pleural effusion with adjacent consolidative opacification
Acute respiratory failure with hypoxia due to the above
Leukocytosis likely reactive
Chronic anemia (baseline Hb 12�13.5g/dL)
CKD creatinine 1.5
Left hemidiaphragm elevation
Chronic hypotension on midodrine
A-fib off of Xarelto
Parkinson disease
Dementia
Subjective/Objective
Subjective
no new complaints
Vital Signs:
Vital Signs
Temp Pulse Resp BP Pulse Ox
97.0 F 41 16 97/46 98
05/26/24 07:00 05/26/24 07:00 05/26/24 07:00 05/26/24 07:00 05/26/24 07:00
Lab Results:
Laboratory Data
WBC 8.1 10^3/uL (4.8-10.8) 05/26/24 06:40
Hgb 11.9 g/dL (13.0-18.0) L 05/26/24 06:40
Plt Count 175 10^3/uL (130-400) 05/26/24 06:40
PT 15.7 Sec (11.4-14.6) H 05/23/24 06:15
INR 1.22 05/23/24 06:15
APTT Cancelled 05/26/24 14:00
eGFR 41.70 05/26/24 06:40
Physical Exam
HEENT: Moist Mucous Membranes; No Jaundice
Cardiology: Normal Sinus Rhythm
Pulmonary: Clear
Extremities: Pulses Present
Neuro: Non Focal
[2024-05-26 11:30] VITALS: BP 140/67
[2024-05-26] MEDS: ProAmatine PO (11:57)
[2024-05-26] MEDS: ProAmatine 10 MG PO ×2 (11:57→17:40)
[2024-05-26] MEDS: DESENEX/MITRAZOL/ZEASORB 1 APPLIC TOPICAL ×2 (11:57→20:51)
[2024-05-26] MEDS: PACERONE 200 MG PO ×2 (11:58→20:46)
[2024-05-26] MEDS: NAMENDA 10 MG PO ×2 (11:58→20:46)
[2024-05-26] MEDS: FLOMAX 0.4 MG PO (11:58)
[2024-05-26] MEDS: KCL 20 MEQ PO (11:58)
[2024-05-26] MEDS: ELIQUIS 2.5 MG PO ×2 (12:05→20:46)
--- NOTE | 2024-05-26 13:26 | W.PN.PUL3 ---
Today's Communication / Plan
-
Eliquis
Monitor for bleeding
IVC filter if hematuria recurs
Sign off
Outpatient pulmonary follow-up
Assessment
-
Assessment: 88-year-old male with a past medical history of chronic systolic heart failure, hypertension, Parkinson disease, dementia, A-fib on Xarelto, CAD, and chronic hypotension on midodrine who [facility] with generalized
pain and found to have low oxygen levels. Per EMS, oxygen levels were in the 80s on room air. In the ER he was afebrile to 97.5 �F, pulse rate 58, respiratory rate 18 breaths/min, BP 111/58 and saturating 92% on 4 L/min nasal cannula. Initial
labs showed Hb 11.8, creatinine 1.5, troponin 0.054, proBNP 1100, and COVID-19 antigen negative. CXR showed no acute cardiopulmonary process, and CTA chest showed bilateral pulmonary emboli with moderate clot burden and no evidence for RV strain.
Also a small left-sided pleural effusion with chronic elevation of the left hemidiaphragm. He was started on heparin and admitted to telemetry. Pulmonary service now consulted for additional management/recommendations per
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
Impression:
#Bilateral pulmonary embolism without RV strain involving left upper lobe + right lung (PESI score: 106, class IV: 4-11.4% 30 day mortality risk)
#Elevated troponin likely due to above in the setting of acute PE with demand ischemia/type II MS
#Left lower lobe pleural effusion with adjacent consolidative opacification ---> DDx includes compressive atelectasis vs pneumonia
#Acute respiratory failure with hypoxia due to the above
#C. difficile colitis now on PO vancomycin
#Leukocytosis likely reactive due to above
#Chronic anemia (baseline Hb 12�13.5g/dL)
#CKD (baseline creatinine 1.2�1.3)
#Left hemidiaphragm elevation
#Chronic hypotension on midodrine
#BPH
#CAD
#A-fib on Xarelto
#Parkinson disease
#Dementia
#Chronic HF,rEF (LVEF: 50% via TTE from 01/2020)
Plan:
- Continue with systemic anticoagulation, heparin drip discontinued now on low-dose Eliquis.
- Lower extremity duplex done on 05/23/2024 negative for DVT
- Check transthoracic echo-05/25/2024, normal LVEF. Mild to moderate AR. Mild to moderate TR. Normal RV function.
-Stable hemodynamically. On low rate supplemental oxygen.
- Continue with amiodarone --> considering he is on outpatient, chronic amiodarone, he should obtain annual spirometry to trend FVC
-Anticoagulation as above.
- Recommend outpatient PFTs
Hematology following. Agree with IVC filter if hematuria recurs.
- Patient has a left-sided lower lobe pleural effusion with adjacent consolidation, differential including compressive atelectasis versus pneumonia.
Of note, he is positive for C. difficile, and is now on PO vancomycin which could explain the worsening leukocytosis.
US with small left pleural effusion.
Doubt Pneumonia.
- Incentive spirometer encouraged q1hr while awake (currently lethargic so this will need to be on hold for now)
- DVT ppx - currently on heparin drip
No further recommendation from the pulmonary perspective.
Continue monitor for bleeding
Sign off
Data:
CTA Chest 05/22/2024:
1. Positive for bilateral pulmonary thromboembolus with a moderate clot burden.
2. Small left pleural effusion.
3. Chronic elevation of the left hemidiaphragm and compressive atelectasis on the left lower lobe.
4. Additional chronic findings, as detailed above.
Bilateral lower extremity duplex ultrasound 05/23/2024: No sonographic evidence for lower extremity venous thrombosis.
Subjective Data
-
Date of Service:
Date of Service: May 26, 2024
Chief Complaint: Pulmonary Follow Up and VTE Follow Up
Subjective:
Denies any pulmonary complaints
Tolerating anticoagulation without recurrent hematuria so far
Objective Data
Data Reviewed
Vital Signs / I&O / Oxygen:
Vital Signs
Temp Pulse Resp BP Pulse Ox
97.1 F 60 16 140/67 95
05/26/24 11:30 05/26/24 11:30 05/26/24 11:30 05/26/24 11:30 05/26/24 12:45
Intake and Output
05/25/24 05/26/24 05/27/24
06:59 06:59 06:59
Intake Total 1184 / 1184 1512 / 1512
Balance 1184 / 1184 1512 / 1512
SaO2 95
Nasal Cannula flow liters per 3
minute
Physical Exam
General: Respiratory Distress (negative), Comfortable, Chills (negative) and Sweats (negative)
HEENT: Normocephalic and Anicteric
Cardiovascular: S1-S2, Murmur (MELINA heard across precordium, grade II/) and Peripheral Edema (negative)
Respiratory: Clear, Wheeze (negative), Crackles (negative), Rhonchi (negative), Non-Labored Respirations, Stridor (negative) and Other (Diminished breath sounds at left base)
GI: Soft, Non Distended, Non Tender and Normal Bowel Sounds
Neurology: Lethargic
Skin: Warm, Dry, Cyanosis (negative) and Jaundice (negative)
Labs/Micro/Reports
Lab Data
05/26/24 06:40
05/26/24 06:40
Laboratory Results
05/26/24 05/26/24
06:40 14:00
APTT 113.8 H Cancelled
Microbiology
05/24/24 05:02 Feces/Stool Salmonella/Shigella Culture - Final
No Salmonella, Shigella, Aeromonas or Plesiomonas species
isolated.
05/24/24 05:02 Feces/Stool Campylobacter Culture - Final
No Campylobacter species isolated.
05/24/24 05:02 Feces/Stool Shiga Toxin Test - Final
No E. coli Shiga Toxin 1 or 2 detected.
05/24/24 13:12 Nose MRSA Screen - Final
No Methicillin Resistant Staphylococcus aureus isolated.
05/24/24 05:02 Feces/Stool Stool Leukocytes - Final
05/24/24 05:02 Feces/Stool C. difficile GDH Antigen & Toxins - Final
Toxigenic C.difficile Positive
05/24/24 05:02 Feces/Stool - Final
Negative for Norovirus GI and GII.
[2024-05-26 15:00] VITALS: BP 119/64
--- NOTE | 2024-05-26 16:42 | CM ---
Patient resident of [facility].
PT/OT rec SNF
[2024-05-26] MEDS: ARICEPT 10 MG PO (17:40)
[2024-05-26 19:46] VITALS: BP 156/80
[2024-05-26 23:14] VITALS: BP 141/68
[2024-05-27] MEDS: FIRVANQ 250 MG PO ×4 (00:45→16:35)
[2024-05-27 03:20] VITALS: BP 148/71
[2024-05-27 06:27] LABS: Blood Urea Nitrogen 27 mg/dl (9-20); Calcium 8.1 mg/dl (8.4-10.2); Carbon Dioxide 26 mmol/L (22-30); Chloride 117 mmol/L (98-107); Estimated Creatinine Clearance 51 ml/min; Glucose 87 mg/dl (70-99); Potassium 4.2 mmol/L (3.5-5.1); Sodium 148 mmol/L (135-145); eGFR 58.89
[2024-05-27 06:33] VITALS: BMI 25.4
[2024-05-27 07:00] VITALS: BP 140/69
[2024-05-27] MEDS: FLOMAX 0.4 MG PO (09:08)
[2024-05-27] MEDS: ProAmatine 10 MG PO ×3 (09:08→16:34)
[2024-05-27] MEDS: KCL 20 MEQ PO (09:08)
[2024-05-27] MEDS: ELIQUIS 2.5 MG PO ×2 (09:08→21:06)
[2024-05-27] MEDS: NAMENDA 10 MG PO ×2 (09:08→21:06)
[2024-05-27] MEDS: PACERONE 200 MG PO ×2 (09:08→21:08)
[2024-05-27] MEDS: DESENEX/MITRAZOL/ZEASORB 1 APPLIC TOPICAL ×2 (09:10→21:11)
--- NOTE | 2024-05-27 11:04 | W.PN.HOSP.TC ---
Addendum entered and electronically signed by Darien Desai MD 05/27/24 14:38:
Bilateral Buttocks Stage 2 Pressure Injury, POA
Original Note:
Today's Communication/Plan
-
DC planning
Assessment / Plan
Assessment / Plan
Bilateral PE with moderate clot burden
- BP stable
- Resolved hypoxia
- Recently had thinners d/c due to hematuria-no evidence of hematuria now
-Transition from IV heparin to Eliquis 05/26-recommended dose was 2.5 mg twice daily.
- ECHO with higher pulmonary pressures than before but no RV dysfunction.
- US legs neg for DVT
-Pulmonary and hematology input noted.
Elevated TPNI with abn EKG
HX due to dementia
Denies CP
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
- Trend TPNI
- ECHO noted
At risk for recurent hematuria due to necessary heparin gtt for acute PE
HX renal cell carcinoma s/p nephrectomy
HX recent with Proteus mirabilis
- Recent CT A/P showed 3 left-sided ureteral calculi with mild distention of mid to distal ureter
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
Acute kidney injury on chronic kidney disease stage III
Creatinine admission was 1.5 which was the same as recent discharge from last week.
Creatinine bump up possibly secondary to volume with the diarrhea and C. difficile. Rise in sodium noted again indicating volume depletion
Changed IV fluids to D5 half-normal and increase the rate and follow creatinine closely. Recent CT of the abdomen pelvis showed -In the mid left ureter, there is a 1.8 mm calculus. No hydroureteronephrosis. There is a 1 mm calculus in the mid to
distal left ureter adjacent to the external iliac vessels. There is a 2 mm calculus in the distal ureter. Mild distention of the mid and distal ureter.
Creatinine improved back to his baseline. Oral intake improved. .
Bladder scan shows urine of 202ml yesterday and pt was urinating ok per RN yesterday. Continue to follow.
Creatinine further improved to 1.2.
DC IV fluids and encourage oral intake.
Hypernatremia secondary to volume deficit-improving. Repeat BMP in a.m.
Diarrhea with C diff positivity
Recent abx use noted
WBC normalized. Decreasing diarrhea.
Continue on PO vanco
Abdomen soft without tenderness today
HX Paroxysmal AF
-Nonvalvular; home medications include amiodarone
- Holding Xarelto
- No known history of electrophysiologic interventions
Alzheimer dementia
HX Mild chronic dysphagia
-Avoid benzodiazepines, continue with memantine at donepezil
-Continue with nectar thick liquid consistency
- Decrease lorazepam dose due to sleepiness
- No agitation
Chronic HFpEF: stable
Chr hypotensive
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
- Not currently on GDMT or standing diuretic therapy
- Is chronically on midodrine 10 mg 3 times daily
-Clinically euvolemic
Nonessential tremors
- Unclear etiology, likely associated with Parkinson's history
DVT prophylaxis: Heparin gtt for acute PE
Diet: Cholesterol-lowering, honey thick liquids
CODE STATUS: DNR
IP TLM
DW daughter via TT 05/26
PT recommends SNF
Medically stable for discharge to rehab when bed available
Anticipated Discharge: Today
Subjective/Interval History
-
Date of Service: May 27, 2024
Patient is much improved. More alert. More interactive. He knew he is in the hospital but could not name it. Voicing no specific complaints.
Denies any nausea vomiting or abdominal pain.
Denies any shortness of breath. He is got history of dementia.
His daughter works in here as a registered nurse but he did not know that.
Objective Data
-
Labs:
Laboratory Results
05/27/24
04:20
Sodium 148 H
Potassium 4.2
Chloride 117 H
Carbon Dioxide 26
BUN 27 H
Creatinine 1.2
Glucose 87
Calcium 8.1 L
Vital Signs:
Vital Signs
Temp Pulse Resp BP Pulse Ox
97.8 F 59 16 140/69 94
05/27/24 07:00 05/27/24 07:00 05/27/24 07:00 05/27/24 07:00 05/27/24 07:00
I&O
05/26/24 05/27/24 05/28/24
06:59 06:59 06:59
Intake Total 1512 / 1512 2480 / 2480
Balance 1512 / 1512 2480 / 2480
Review of Systems
-
Unable to obtain full review of systems at this time due to: Dementia
Physical Exam
-
General: No Apparent Distress
HEENT: Moist Mucous Membranes
Respiratory: Clear to Auscultation (Anteriorly) and Other (On room air now)
Cardiac: Regular Rhythm and S1/S2
GI: Soft and Nontender
Neuro: Awake, Alert and Oriented (Self)
Psych: Calm and Confused; Negative Agitated
Data Reviewed
-
Labs: Labs Reviewed by me
[2024-05-27 11:53] VITALS: BP 140/68
[2024-05-27 15:00] VITALS: BP 146/75
[2024-05-27] MEDS: ARICEPT 10 MG PO (16:35)
[2024-05-27 18:46] VITALS: BP 169/87
[2024-05-27 22:59] VITALS: BP 158/78
[2024-05-28] MEDS: FIRVANQ 250 MG PO ×3 (00:51→11:07)
[2024-05-28 03:07] VITALS: BP 126/93
[2024-05-28 05:18] VITALS: BMI 25.4
[2024-05-28 07:09] VITALS: BP 168/81
[2024-05-28 07:30] LABS: Blood Urea Nitrogen 22 mg/dl (9-20); Calcium 8.3 mg/dl (8.4-10.2); Carbon Dioxide 26 mmol/L (22-30); Chloride 115 mmol/L (98-107); Estimated Creatinine Clearance 51 ml/min; Glucose 85 mg/dl (70-99); Potassium 4.2 mmol/L (3.5-5.1); Sodium 147 mmol/L (135-145); eGFR 58.89
[2024-05-28] MEDS: PACERONE 200 MG PO (08:28)
[2024-05-28] MEDS: ProAmatine 10 MG PO ×2 (08:28→11:06)
[2024-05-28] MEDS: FLOMAX 0.4 MG PO (08:29)
[2024-05-28] MEDS: NAMENDA 10 MG PO (08:29)
[2024-05-28] MEDS: ELIQUIS 2.5 MG PO (08:29)
[2024-05-28] MEDS: KCL 20 MEQ PO (08:29)
[2024-05-28] MEDS: DESENEX/MITRAZOL/ZEASORB 1 APPLIC TOPICAL (08:32)
--- NOTE | 2024-05-28 08:42 | CM ---
Addendum entered by Senait Villafuerte 05/28/24 11:39:
IMM explained & signed.
Transport forms on chart.
Called Judith [facility]ULLIV[facility] and updated patient d/c today.
Addendum entered by Senati Villafuerte 05/28/24 10:26:
Called Judith SULLIVAN [phone] at [facility] and they will accept patient back to the facility
[facility]
Report #: [phone] (ask for nurse)
Fax #: [phone]
Original Note:
PT recommended SNF-Resides at [facility]
PT will re-eval today
Discussed with daughter Johnna avila.
She would like patient to return to [facility].
CM to call to confirm with [facility] if they will accept patient back.
PLAN: Return to [facility] vs. SNF
[2024-05-28 09:37] VITALS: BP 125/68; PULSE 68; O2SAT 93
--- NOTE | 2024-05-28 10:21 | W.PN.HOSP.TC ---
Today's Communication/Plan
-
dc
Assessment / Plan
Assessment / Plan
Bilateral PE with moderate clot burden
- BP stable
- Resolved hypoxia
- Recently had thinners d/c due to hematuria-no evidence of hematuria now
- Transitioned from IV heparin to Eliquis 05/26-recommended dose was 2.5 mg twice daily.
- ECHO with higher pulmonary pressures than before but no RV dysfunction.
- US legs neg for DVT
- Pulmonary and hematology input noted.
Elevated TPNI with abn EKG
HX due to dementia
Denies CP
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
- Trend TPNI
- ECHO noted
At risk for recurent hematuria due to necessary heparin gtt for acute PE
HX renal cell carcinoma s/p nephrectomy
HX recent with Proteus mirabilis
- Recent CT A/P showed 3 left-sided ureteral calculi with mild distention of mid to distal ureter
- c/w [employer] Cefdinir to complete total 14 days -done
Acute kidney injury on chronic kidney disease stage III
Creatinine admission was 1.5 which was the same as recent discharge from last week.
Creatinine bump up possibly secondary to volume with the diarrhea and C. difficile. Rise in sodium noted again indicating volume depletion
Changed IV fluids to D5 half-normal and increase the rate and follow creatinine closely. Recent CT of the abdomen pelvis showed -In the mid left ureter, there is a 1.8 mm calculus. No hydroureteronephrosis. There is a 1 mm calculus in the mid to
distal left ureter adjacent to the external iliac vessels. There is a 2 mm calculus in the distal ureter. Mild distention of the mid and distal ureter.
Creatinine improved back to his baseline. Oral intake improved. .
Bladder scan shows urine of 202ml yesterday and pt was urinating ok per RN yesterday. Continue to follow.
Creatinine further improved to 1.2.
DCed IV fluids
Encourage oral intake.
Hypernatremia secondary to volume deficit-improving. Improved
Diarrhea with C diff positivity
Recent abx use noted
WBC normalized. Improved diarrhea.
Continue on PO vanco
Abdomen soft without tenderness today
HX Paroxysmal AF
-Nonvalvular; home medications include amiodarone
- Holding Xarelto
- No known history of electrophysiologic interventions
Alzheimer dementia
HX Mild chronic dysphagia
-Avoid benzodiazepines, continue with memantine at donepezil
-Continue with nectar thick liquid consistency
- Decrease lorazepam dose due to sleepiness
- No agitation
Chronic HFpEF: stable
Chr hypotensive
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
- Not currently on GDMT or standing diuretic therapy
- Is chronically on midodrine 10 mg 3 times daily
-Clinically euvolemic
Nonessential tremors
- Unclear etiology, likely associated with Parkinson's history
DVT prophylaxis: Heparin gtt for acute PE
Diet: Cholesterol-lowering, honey thick liquids
CODE STATUS: DNR
IP TLM
DW daughter via [facility] 05/26
PT recommends SNF
Medically stable for discharge to rehab when bed available
DW daughter Aleisha clinical improvements, treatments and discharge plan. She wants him to go back to [facility] to get his therapies. Will ask case management to communicate with them regarding transfer back.
Total time of dc 35 min
Anticipated Discharge: Today
Subjective/Interval History
-
Date of Service: May 28, 2024
Continued improvement with mentation. Very alert and oriented to place. Following commands while working with the PT.
Objective Data
-
Labs:
Laboratory Results
05/28/24
06:23
Sodium 147 H
Potassium 4.2
Chloride 115 H
Carbon Dioxide 26
BUN 22 H
Creatinine 1.2
Glucose 85
Calcium 8.3 L
Vital Signs:
Vital Signs
Temp Pulse Resp BP Pulse Ox
97.2 F 61 17 138/81 95
05/28/24 07:09 05/28/24 08:28 05/28/24 07:09 05/28/24 08:28 05/28/24 07:09
I&O
05/27/24 05/28/24 05/29/24
06:59 06:59 06:59
Intake Total 2480 / 2480 410 / 410
Balance 2480 / 2480 410 / 410
Review of Systems
-
Unable to obtain full review of systems at this time due to: Dementia
Constitutional: Denies Fever
Respiratory: Denies Trouble Breathing
Cardiac: Denies Chest Pain
Abdomen/GI: Denies Abdominal Pain, Nausea or Vomiting
Neuro: Denies Dizzy
Physical Exam
-
General: No Apparent Distress
HEENT: Moist Mucous Membranes
Respiratory: Clear to Auscultation
Cardiac: Regular Rhythm and S1/S2; Negative Tachycardic
GI: Soft and Nontender
Neuro: Awake, Alert and Oriented
Psych: Calm and Confused; Negative Agitated
Data Reviewed
-
Labs: Labs Reviewed by me
[2024-05-28 11:05] VITALS: BP 136/68
--- NOTE | 2024-05-28 12:02 | PTCARENOTE ---
This RN attempted to call report to [facility], no RN available for report at this time. Instructed via voicemail with name and callback number if need be. Pt to be transferred back via [facility] at 1330.
== END 2024-05-28 13:46 | DRG 175 ==
LOC: 2 NORTH 15:12
PROVIDERS: Physician Assistant; ADMITTING PHYSICIAN Internal Medicine; ATTENDING PHYSICIAN Internal Medicine; CONSULT PHYSICIAN Internal Medicine Critical Care Medicine; CONSULT PHYSICIAN Internal Medicine Hematology & Oncology; EMERGENCY PHYSICIAN Student in an Organized Health Care Education/Training Program; FAMILY PHYSICIAN Internal Medicine
DX: I26.99 Other pulmonary embolism without acute cor pulmonale (principal); J96.01 Acute respiratory failure with hypoxia; I13.0 Hypertensive heart and chronic kidney disease with heart failure and stage 1 through stage 4 chronic kidney disease, or unspecified chronic kidney disease; E87.0 Hyperosmolality and hypernatremia; A04.72 Enterocolitis due to Clostridium difficile, not specified as recurrent; I50.32 Chronic diastolic (congestive) heart failure; I5A Non-ischemic myocardial injury (non-traumatic); Z66 Do not resuscitate; G20.A1 Parkinson's disease without dyskinesia, without mention of fluctuations; F02.80 Dementia in other diseases classified elsewhere, unspecified severity, without behavioral disturbance, psychotic disturbance, mood disturbance, and anxiety; I25.10 Atherosclerotic heart disease of native coronary artery without angina pectoris; I48.0 Paroxysmal atrial fibrillation; J44.9 Chronic obstructive pulmonary disease, unspecified; E78.00 Pure hypercholesterolemia, unspecified; G30.9 Alzheimer's disease, unspecified; I95.89 Other hypotension; N40.0 Benign prostatic hyperplasia without lower urinary tract symptoms; N18.31 Chronic kidney disease, stage 3a; L89.322 Pressure ulcer of left buttock, stage 2; L89.312 Pressure ulcer of right buttock, stage 2; E80.4 Gilbert syndrome; D63.1 Anemia in chronic kidney disease; Z11.52 Encounter for screening for COVID-19; Z96.653 Presence of artificial knee joint, bilateral; Z96.641 Presence of right artificial hip joint; Z90.5 Acquired absence of kidney; Z87.891 Personal history of nicotine dependence; Z85.528 Personal history of other malignant neoplasm of kidney; Z79.899 Other long term (current) drug therapy; Z79.01 Long term (current) use of anticoagulants
CPT/HCPCS: 71046; 71275; 76604; 80048; 80053; 83036; 83880; 84145; 84484; 85025; 85027; 85610; 85730; 87045; 87046; 87070; 87324; 87427; 87449; 87502; 87798; 87811; 89055; 93005; 93306; 93970; 96365; 96366; 97163; 97530; 99285; J3480; Q9967